=== PATIENT | female | born 1985 | race Caucasian/White ===

== ENCOUNTER 2018-03-14 15:32 | Emergency (ER) | payer OTHER ==
--- NOTE | 2018-03-14 15:55 | ERPHSYRPT ---
- History of Present Illness Time Seen by Provider: 03/14/18 15:50 Source: patient Exam Limitations: no limitations Patient Subjective Stated Complaint: pt states "I did something to my hand at work the other day. My left thumb locked up and I can move it now but it really hurts." Triage Nursing Assessment: Pt alert and oriented X 3, skin pwd. PT ambulates with no difficulty, able to sepak in clear full sentences. CSM X 4, no bruising noted. Physician History: The patient is a 32-year-old right-handed female with her complaining that her left thumb "locked up on her" on while at work. It was able to start moving again. However, now she still has pain in her left thumb going into her hand and wrist. She has used ice a little bit but not much. She has taken Tylenol. She has not taken ibuprofen because she did not have any at home. Her right thumb will lock up on her from time to time as well. She was using a thumb brace but it didn't seem to be in the right position. Her past medical history is significant for depression and anxiety. She does not want any narcotics. Occurred: days ago (3) Method of Injury: unknown Quality: aching, burning Severity of Pain-Max: moderate Severity of Pain-Current: moderate Extremities Pain Location: thumb: left Modifying Factors: Improves With: nothing Associated Symptoms: none Allergies/Adverse Reactions: No Known Drug Allergies Allergy (Unverified 03/14/18 15:45) Home Medications: Anastrozole 1 mg PO DAILY 03/14/18 [History] Buspirone HCl 5 mg PO DAILY 03/14/18 [History] Citalopram Hydrobromide [Celexa] 10 mg PO DAILY 03/14/18 [History] Hx Tetanus, Diphtheria Vaccination/Date Given: No Hx Influenza Vaccination/Date Given: No Hx Pneumococcal Vaccination/Date Given: No Immunizations Up to Date: Yes - Review of Systems Constitutional: No Fever, No Chills Eyes: No Symptoms Ears, Nose, & Throat: No Symptoms Respiratory: No Cough, No Dyspnea Cardiac: No Chest Pain, No Edema, No Syncope Abdominal/Gastrointestinal: No Abdominal Pain, No Nausea, No Vomiting, No Diarrhea Genitourinary Symptoms: No Dysuria Musculoskeletal: Myalgias Skin: No Rash Neurological: No Dizziness, No Focal Weakness, No Sensory Changes Psychological: No Symptoms Endocrine: No Symptoms Hematologic/Lymphatic: No Symptoms Immunological/Allergic: No Symptoms All Other Systems: Reviewed and Negative - Past Medical History Pertinent Past Medical History: Yes Other Medical History: endometriosis - Past Surgical History Past Surgical History: Yes Other Surgical History: exploratory abdominal surgery. appendectomy - Social History Smoking Status: Former smoker Exposure to second hand smoke: Yes Drug Use: none Patient Lives Alone: No - Female History Hx Last Menstrual Period: on shot Hx Now: No - Nursing Vital Signs Nursing Vital Signs: Initial Vital Signs Temperature 98.5 F 03/14/18 15:38 Pulse Rate 60 03/14/18 15:38 Respiratory Rate 16 03/14/18 15:38 Blood Pressure 106/64 03/14/18 15:38 O2 Sat by Pulse Oximetry 100 03/14/18 15:38 Pain Scale Pain Intensity 5 - Physical Exam General Appearance: alert Eyes, Ears, Nose, Throat Exam: normal ENT inspection Neck Exam: non-tender, supple Cardiovascular/Respiratory Exam: chest non-tender, normal breath sounds, regular rate/rhythm, no respiratory distress Abdominal Exam: non-tender, No guarding Back Exam: normal inspection, No vertebral tenderness Shoulder Exam: normal inspection Elbow/Forearm Exam: normal inspection Wrist Exam: normal inspection Hand Exam: limited ROM, soft tissue tenderness (left thumb) Neuro/Tendon Exam: normal sensation, normal motor functions Mental Status Exam: alert, oriented x 3, cooperative Skin Exam: normal color, warm, dry SpO2 Interpretation: normal SpO2: 100 Oxygen Delivery: Room Air - Radiology Exams Left Hand X-ray Interpretation: Interpreted by me, Negative, No Fracture, No Subluxation Ordered Tests: Active Orders 24 hr Category Date Time Status HAND (MINIMUM 3 VIEWS) Stat Exams 03/14/18 15:58 Ordered Medication Summary Discontinued Medications Generic Name Dose Route Start Last Admin Trade Name Freq PRN Reason Stop Dose Admin Ketorolac Tromethamine 60 mg 03/14/18 15:58 03/14/18 16:05 Toradol 30 Mg Injection IM 03/14/18 15:59 60 mg STAT ONE Administration Ketorolac Tromethamine Confirm 03/14/18 16:02 Toradol 30 Mg Injection Administered 03/14/18 16:03 Dose 60 mg .ROUTE .STK-MED ONE - Progress Progress: improved Counseled pt/family regarding: diagnosis, rad results - Departure Time of Disposition: 16:18 Departure Disposition: Home Clinical Impression: Strain of left thumb Condition: Stable Critical Care Time: No Referrals: MECHELLE POWERS MD [Primary Care Provider] - Additional Instructions: You have a left thumb strain. You were given Toradol 60 mg by IM in the ER. Wear the splint as needed for comfort. Take naproxen 500 mg 2 times a day as needed. Apply ice to the thumb at least 3 times a day. Follow-up with your primary medical doctor as needed. Prescriptions: Naproxen 500 mg PO BID PRN #30 tablet.
[2018-03-14] MEDS ORDERED: TORAdol 30 mg Injection IM ONE (15:58)
[2018-03-14] MEDS ORDERED: TORAdol 30 mg Injection ONE (16:02)
[2018-03-14 17:17] VITALS: BP 111/62; PULSE 64; O2SAT 98
--- NOTE | 2018-03-14 22:08 | XRAY ---
Indication: Pain. No known injury. Comparison: None 3 views of the left hand demonstrates normal bones, articulation, and soft tissues.
== END 2018-03-14 17:18 | disposition home or self-care (01) ==
LOC: ED 15:32
DX: S66.412A Strain of intrinsic muscle, fascia and tendon of left thumb at wrist and hand level, initial encounter (principal)
CPT/HCPCS: 73130; 96372; 99284; J1885

== ENCOUNTER 2020-04-07 17:56 | Emergency (ER) | payer OTHER ==
[2020-04-07] MEDS ORDERED: ZOFRAN ODT 4 MG PO ONE (18:12)
[2020-04-07] MEDS ORDERED: Zofran 4 MG/2 ML VIAL IV ONE ×2 (18:17→18:18)
[2020-04-07] MEDS ORDERED: Sodium Chloride 0.9% 1000 ML 1,000 ML IV STA ×2 (18:18→18:46)
[2020-04-07] MEDS ORDERED: Sodium Chloride 0.9% 1000 ML 1,000 ML ONE ×2 (18:23→19:08)
[2020-04-07] MEDS ORDERED: Zofran 4 MG/2 ML VIAL ONE (18:23)
--- NOTE | 2020-04-07 18:26 | ERPHSYRPT ---
- History of Present Illness Time Seen by Provider: 04/07/20 18:15 Historian: patient Exam Limitations: no limitations Patient Subjective Stated Complaint: Pt states "I was at work and started to vomit about 3 am." Triage Nursing Assessment: Pt presented alert and oriented X 3, skin pwd Pt ambulates with an upright steady gait, able to speak in clear full sentences. Pt in no apparent respiratory distress. Physician History: This is a 34-year-old white female who has had a total hysterectomy in the past and presents with several episodes of vomiting since 3:00 this morning. 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 She began the vomiting episodes since 3:00am. Patient denies myalgias and arthralgias, she denies chest pain. She does not have shortness of breath. She has had no fever. She does not have diarrhea. Timing/Duration: today Activities at Onset: none Quality: fullness, other (Symptoms of generalized abdominal fullness are present) Abdominal Pain Onset Location: generalized abdomen Pain Radiation: no radiation Severity of Pain-Max: mild Severity of Pain-Current: mild Modifying Factors: Improves With: vomiting Associated Symptoms: nausea, vomiting, weakness, No chest pain, No diarrhea, No fever/chills, No headache, No shortness of breath Previous symptoms: no prior history Allergies/Adverse Reactions: No Known Drug Allergies Allergy (Verified 04/07/20 18:09) Home Medications: estradioL [Estradiol] 1 mg PO DAILY 04/07/20 [History] Hx Tetanus, Diphtheria Vaccination/Date Given: No Hx Influenza Vaccination/Date Given: No Hx Pneumococcal Vaccination/Date Given: No Immunizations Up to Date: Yes Travel Risk - International Travel Have you traveled outside of the country in past 3 weeks: No - Coronavirus Screening Are you exhibiting any of the following symptoms?: No Close contact with a COVID-19 positive Pt in past 14-21 Days: No - Review of Systems Constitutional: Weakness Eyes: No Symptoms Ears, Nose, & Throat: No Symptoms Respiratory: No Symptoms Cardiac: No Symptoms Abdominal/Gastrointestinal: Nausea, Vomiting, No Abdominal Pain (No significant), No Diarrhea Genitourinary Symptoms: No Symptoms Musculoskeletal: No Symptoms Skin: No Symptoms Neurological: No Symptoms Psychological: No Symptoms Endocrine: No Symptoms Hematologic/Lymphatic: No Symptoms Immunological/Allergic: No Symptoms All Other Systems: Reviewed and Negative - Past Medical History Pertinent Past Medical History: Yes Neurological History: No Pertinent History ENT History: No Pertinent History Cardiac History: No Pertinent History Respiratory History: No Pertinent History Endocrine Medical History: No Pertinent History Musculoskeletal History: No Pertinent History GI Medical History: No Pertinent History History: No Pertinent History Psycho-Social History: No Pertinent History Female Reproductive Disorders: No Pertinent History Other Medical History: endometriosis - Past Surgical History Past Surgical History: Yes Neuro Surgical History: No Pertinent History Cardiac: No Pertinent History Respiratory: No Pertinent History Gastrointestinal: Appendectomy, Exploratory Laparoscopy Genitourinary: No Pertinent History Musculoskeletal: No Pertinent History Female Surgical History: Hysterectomy Other Surgical History: exploratory abdominal surgery. appendectomy. hysterectomy - Social History Smoking Status: Former smoker Exposure to second hand smoke: Yes Drug Use: marijuana Patient Lives Alone: No - Female History Hx Last Menstrual Period: hysterectomy Hx Now: No - Nursing Vital Signs Nursing Vital Signs: Initial Vital Signs Temperature 97.5 F 04/07/20 18:04 Pulse Rate 80 04/07/20 18:04 Respiratory Rate 22 04/07/20 18:04 Blood Pressure 108/70 04/07/20 18:04 O2 Sat by Pulse Oximetry 99 04/07/20 18:04 Pain Scale Pain Intensity 0 - Physical Exam General Appearance: mild distress, alert, anxiety Eye Exam: PERRL/EOMI Ears, Nose, Throat Exam: normal ENT inspection, moist mucous membranes Neck Exam: normal inspection, non-tender, supple, full range of motion Respiratory Exam: normal breath sounds, lungs clear, airway intact, No chest tenderness, No respiratory distress Cardiovascular Exam: regular rate/rhythm, normal heart sounds, normal peripheral pulses Gastrointestinal/Abdomen Exam: soft, normal bowel sounds, No tenderness, No guarding, No rebound Pelvic Exam: not done Rectal Exam: not done Back Exam: normal inspection, normal range of motion, No CVA tenderness, No vertebral tenderness Extremity Exam: normal inspection, normal range of motion, pelvis stable Neurologic Exam: alert, oriented x 3, cooperative, 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, normal mood/affect, sensation nml Skin Exam: normal color, warm, dry Lymphatic Exam: No adenopathy SpO2 Interpretation: normal SpO2: 99 O2 Delivery: Room Air Ordered Tests: Active Orders 24 hr Category Date Time Status IV Insertion STAT Care 04/07/20 18:18 Active AMYLASE Stat Lab 04/07/20 18:25 Completed CBC W DIFF Stat Lab 04/07/20 18:25 Completed CMP Stat Lab 04/07/20 18:25 Completed LIPASE Stat Lab 04/07/20 18:25 Completed Lactic Acid Stat Lab 04/07/20 18:55 Completed UA W/RFX UR CULTURE Stat Lab 04/07/20 18:25 Completed Medication Summary Discontinued Medications Generic Name Dose Route Start Last Admin Trade Name Bobbyq PRN Reason Stop Dose Admin Sodium Chloride 1,000 mls @ 999 mls/hr 04/07/20 18:18 04/07/20 19:16 Sodium Chloride 0.9% 1000 Ml IV 04/07/20 19:18 Infused .Q1H1M STA Infusion Sodium Chloride Confirm 04/07/20 18:23 Sodium Chloride 0.9% 1000 Ml Administered 04/07/20 18:24 Dose 1,000 mls @ ud .ROUTE .STK-MED ONE Sodium Chloride 1,000 mls @ 999 mls/hr 04/07/20 18:46 04/07/20 19:11 Sodium Chloride 0.9% 1000 Ml IV 04/07/20 19:46 999 mls/hr .Q1H1M STA Administration Sodium Chloride Confirm 04/07/20 19:08 Sodium Chloride 0.9% 1000 Ml Administered 04/07/20 19:09 Dose 1,000 mls @ ud .ROUTE .STK-MED ONE Ondansetron HCl 4 mg 04/07/20 18:12 04/07/20 18:18 Zofran Odt 4 Mg PO 04/07/20 18:13 Not Given STAT ONE Ondansetron HCl 4 mg 04/07/20 18:17 04/07/20 18:24 Zofran 4 Mg/2 Ml Vial IV 04/07/20 18:18 4 mg STAT ONE Administration Ondansetron HCl 4 mg 04/07/20 18:18 04/07/20 18:23 Zofran 4 Mg/2 Ml Vial IV 04/07/20 18:19 Not Given STAT ONE Ondansetron HCl Confirm 04/07/20 18:23 Zofran 4 Mg/2 Ml Vial Administered 04/07/20 18:24 Dose 4 mg .ROUTE .STK-MED ONE Lab/Rad Data: Laboratory Result Diagrams 04/07/20 18:25 04/07/20 18:25 Laboratory Results 04/07/20 04/07/20 04/07/20 Range/Units Unknown 18:55 18:25 WBC (4.0-10.5) K/mm3 RBC (4.1-5.4) M/mm3 Hgb (12.0-16.0) gm/dl Hct (35-47) % MCV (78-100) fl MCH (26-32) pg MCHC (32-36) g/dl RDW (11.5-14.0) % Plt Count (150-450) K/mm3 MPV (7.5-11.0) fl Gran % (36.0-66.0) % Eos # (Auto) (0-0.5) Absolute Lymphs (auto) (1.0-4.6) Absolute Monos (auto) (0.0-1.3) Lymphocytes % (24.0-44.0) % Monocytes % (0.0-12.0) % Eosinophils % (0.00-5.0) % Basophils % (0.0-0.4) % Absolute Granulocytes (1.4-6.9) Basophils # (0-0.4) Sodium 138 (137-145) mmol/L Potassium 3.5 (3.5-5.1) mmol/L Chloride 102 (98-107) mmol/L Carbon Dioxide 26 (22-30) mmol/L Anion Gap 13.5 (5-15) MEQ/L BUN 13 (7-17) mg/dL Creatinine 0.60 (0.52-1.04) mg/dL Estimated GFR > 60.0 ML/MIN Glucose 112 H (74-106) mg/dL Lactic Acid 1.2 (0.4-2.0) Calcium 9.6 (8.4-10.2) mg/dL Total Bilirubin 0.70 (0.2-1.3) mg/dL AST 26 (14-36) U/L ALT 17 (0-35) U/L Alkaline Phosphatase 70 (38-126) U/L Serum Total Protein 8.1 (6.3-8.2) g/dL Albumin 4.9 (3.5-5.0) g/dL Amylase 186 H (30-110) U/L Lipase 97 (23-300) U/L Urine Color (YELLOW) Urine Appearance (CLEAR) Urine pH (5-6) Ur Specific [place] (1.005-1.025) Urine Protein (Negative) Urine Ketones (NEGATIVE) Urine Blood (0-5) [place]/ul Urine Nitrite (NEGATIVE) Urine Bilirubin (NEGATIVE) Urine Urobilinogen (0-1) mg/dL Ur Leukocyte Esterase (NEGATIVE) Urine WBC (Auto) (0-5) /HPF Urine RBC (Auto) (0-2) /HPF U Epithel Cells (Auto) (FEW) /HPF Urine Bacteria (Auto) (NEGATIVE) /HPF Amorphous Crystals (NEGATIVE) /HPF Urine Mucus (Auto) (NEGATIVE) /HPF Urine Culture Reflexed (NO) Urine Glucose (NEGATIVE) mg/dL Influenza Type A Ag NEGATIVE (NEGATIVE) Influenza Type B Ag NEGATIVE (NEGATIVE) RSV (PCR) NEGATIVE (Negative) 04/07/20 04/07/20 Range/Units 18:25 18:25 WBC 14.3 H (4.0-10.5) K/mm3 RBC 4.02 L (4.1-5.4) M/mm3 Hgb 13.5 (12.0-16.0) gm/dl Hct 40.0 (35-47) % MCV 99.5 (78-100) fl MCH 33.6 H (26-32) pg MCHC 33.8 (32-36) g/dl RDW 11.4 L (11.5-14.0) % Plt Count 325 (150-450) K/mm3 MPV 10.6 (7.5-11.0) fl Gran % 83.6 H (36.0-66.0) % Eos # (Auto) 0.01 (0-0.5) Absolute Lymphs (auto) 1.85 (1.0-4.6) Absolute Monos (auto) 0.45 (0.0-1.3) Lymphocytes % 13.0 L (24.0-44.0) % Monocytes % 3.2 (0.0-12.0) % Eosinophils % 0.1 (0.00-5.0) % Basophils % 0.1 (0.0-0.4) % Absolute Granulocytes 11.93 H (1.4-6.9) Basophils # 0.01 (0-0.4) Sodium (137-145) mmol/L Potassium (3.5-5.1) mmol/L Chloride (98-107) mmol/L Carbon Dioxide (22-30) mmol/L Anion Gap (5-15) MEQ/L BUN (7-17) mg/dL Creatinine (0.52-1.04) mg/dL Estimated GFR ML/MIN Glucose (74-106) mg/dL Lactic Acid (0.4-2.0) Calcium (8.4-10.2) mg/dL Total Bilirubin (0.2-1.3) mg/dL AST (14-36) U/L ALT (0-35) U/L Alkaline Phosphatase (38-126) U/L Serum Total Protein (6.3-8.2) g/dL Albumin (3.5-5.0) g/dL Amylase (30-110) U/L Lipase (23-300) U/L Urine Color YELLOW (YELLOW) Urine Appearance TURBID (CLEAR) Urine pH 6.0 (5-6) Ur Specific [place] 1.019 (1.005-1.025) Urine Protein 30 (Negative) Urine Ketones TRACE (NEGATIVE) Urine Blood NEGATIVE (0-5) [place]/ul Urine Nitrite NEGATIVE (NEGATIVE) Urine Bilirubin NEGATIVE (NEGATIVE) Urine Urobilinogen NEGATIVE (0-1) mg/dL Ur Leukocyte Esterase NEGATIVE (NEGATIVE) Urine WBC (Auto) 3-5 (0-5) /HPF Urine RBC (Auto) 0-2 (0-2) /HPF U Epithel Cells (Auto) FEW (FEW) /HPF Urine Bacteria (Auto) NONE (NEGATIVE) /HPF Amorphous Crystals FEW (NEGATIVE) /HPF Urine Mucus (Auto) SLIGHT (NEGATIVE) /HPF Urine Culture Reflexed NO (NO) Urine Glucose NEGATIVE (NEGATIVE) mg/dL Influenza Type A Ag (NEGATIVE) Influenza Type B Ag (NEGATIVE) RSV (PCR) (Negative) - Progress Progress: improved, re-examined Counseled pt/family regarding: lab results, diagnosis, need for follow-up - Departure Departure Disposition: Home Clinical Impression: Nausea and vomiting Condition: Stable Critical Care Time: No Referrals: DOCTOR,NO FAMILY [Primary Care Provider] - Additional Instructions: Drink plenty of clear liquids before advancing your diet. Avoid fatty greasy spicy foods. Follow-up with your primary care physician for further management of any persistent symptoms. Prescriptions: Ondansetron ODT 4 MG [Zofran Odt 4 mg] 4 mg PO Q6H PRN PRN #10 tab.rapdis PRN Reason: Vomiting
[2020-04-07 18:33] LABS: Absolute Neutrophil Ct (ANC) 11.93 (1.4-6.9); BASOPHIL % 0.1 % (0.0-0.4); Basophil (Absolute #) 0.01 (0-0.4); Eosinophil % 0.1 % (0.00-5.0); Eosinophil (Absolute #) 0.01 (0-0.5); Hemoglobin 13.5 gm/dl (12.0-16.0); Lymphocyte (Absolute #) 1.85 (1.0-4.6); Mean Cell Volume 99.5 fl (78-100); Mean Corpuscular Hemoglobin 33.6 pg (26-32); Mean Corpuscular Hgb Concent. 33.8 g/dl (32-36); Mean Platelet Volume 10.6 fl (7.5-11.0); Monocyte (Absolute #) 0.45 (0.0-1.3); Monocytes % 3.2 % (0.0-12.0); Neutrophil % 83.6 % (36.0-66.0); Platelet Count 325 K/mm3 (150-450); Red Blood Count 4.02 M/mm3 (4.1-5.4); Red Cell Distribution Width 11.4 % (11.5-14.0); White Blood Count 14.3 K/mm3 (4.0-10.5)
[2020-04-07 18:40] LABS: Amourphous Crystal FEW /HPF (NEGATIVE); Appearance TURBID (CLEAR); Bilirubin NEGATIVE (NEGATIVE); Blood NEGATIVE Ery/ul (0-5); Epithelial Cells FEW /HPF (FEW); Glucose NEGATIVE (NEGATIVE); Ketones TRACE (NEGATIVE); Leukocyte Esterase NEGATIVE (NEGATIVE); Mucus SLIGHT /HPF (NEGATIVE); Nitrite NEGATIVE (NEGATIVE); Protein,Urine Dip 30 (Negative); RBC 0-2 /HPF (0-2); Specific Gravity 1.019 (1.005-1.025); Urobilinogen NEGATIVE mg/dL (0-1)
[2020-04-07 18:46] LABS: ALBUMIN 4.9 g/dL (3.5-5.0); ALKALINE PHOSPHATASE 70 U/L (38-126); AMYLASE 186 U/L (30-110); ANION GAP 13.5 MEQ/L (5-15); BLOOD UREA NITROGEN 13 mg/dL (7-17); CHLORIDE 102 mmol/L (98-107); Calcium 9.6 mg/dL (8.4-10.2); Carbon Dioxide 26 mmol/L (22-30); Glucose 112 mg/dL (74-106); LIPASE 97 U/L (23-300); Potassium 3.5 mmol/L (3.5-5.1); SGOT/AST 26 U/L (14-36); SGPT/ALT 17 U/L (0-35); SODIUM 138 mmol/L (137-145); Total Protein 8.1 g/dL (6.3-8.2)
[2020-04-07 20:02] LABS: INFLUENZA A NEGATIVE (NEGATIVE); INFLUENZA B NEGATIVE (NEGATIVE); RESPIRATORY SYNCTIAL VIRUS NEGATIVE (Negative)
[2020-04-07 20:54] VITALS: BP 108/63; PULSE 62; O2SAT 98
== END 2020-04-07 20:54 | disposition home or self-care (01) ==
LOC: ED 17:56
DX: R11.2 Nausea with vomiting, unspecified (principal)
CPT/HCPCS: 36000; 36415; 80053; 81001; 82150; 83605; 83690; 85025; 87631; 96360; 96361; 96374; 99284; J2405

== ENCOUNTER 2020-07-17 15:49 | Observation (INO) | payer OTHER ==
--- NOTE | 2020-07-17 16:35 | XRAY ---
Indication: Loss of consciousness. Found on floor. Multiple contiguous axial images obtained through the head without contrast. Comparison: None Normal appearing brain parenchyma, ventricles, and bony calvarium. Visualized paranasal sinuses and mastoid air cells are clear. Impression: Normal CT head without contrast exam.
[2020-07-17 16:54] LABS: Absolute Neutrophil Ct (ANC) 13.65 (1.4-6.9); Basophil (Absolute #) 0 (0-0.4); Eosinophil % 0.1 % (0.00-5.0); Eosinophil (Absolute #) 0.01 (0-0.5); Hematocrit 39.2 % (35-47); Hemoglobin 13.1 gm/dl (12.0-16.0); Lymphocyte (Absolute #) 1.15 (1.0-4.6); Lymphocytes % 7.6 % (24.0-44.0); Mean Corpuscular Hemoglobin 33.8 pg (26-32); Mean Corpuscular Hgb Concent. 33.4 g/dl (32-36); Mean Platelet Volume 10.9 fl (7.5-11.0); Monocyte (Absolute #) 0.37 (0.0-1.3); Monocytes % 2.4 % (0.0-12.0); Neutrophil % 89.9 % (36.0-66.0); Platelet Count 279 K/mm3 (150-450); Red Blood Count 3.88 M/mm3 (4.1-5.4); Red Cell Distribution Width 11.6 % (11.5-14.0); White Blood Count 15.2 K/mm3 (4.0-10.5)
[2020-07-17 16:55] LABS: Amourphous Crystal FEW /HPF (NEGATIVE); Appearance CLOUDY (CLEAR); Bilirubin NEGATIVE (NEGATIVE); Blood SMALL Ery/ul (0-5); Glucose NEGATIVE (NEGATIVE); Ketones TRACE (NEGATIVE); Leukocyte Esterase NEGATIVE (NEGATIVE); Mucus SLIGHT /HPF (NEGATIVE); Nitrite NEGATIVE (NEGATIVE); Protein,Urine Dip 30 (Negative); Specific Gravity 1.017 (1.005-1.025); Urobilinogen NEGATIVE mg/dL (0-1)
[2020-07-17 16:56] LABS: Bacteria NONE SEEN /HPF (NEGATIVE)
[2020-07-17 17:02] LABS: ALBUMIN 4.2 g/dL (3.5-5.0); ALKALINE PHOSPHATASE 65 U/L (38-126); BLOOD UREA NITROGEN 11 mg/dL (7-17); CHLORIDE 105 mmol/L (98-107); Carbon Dioxide 24 mmol/L (22-30); Creatinine 1 0.45 mg/dL (0.52-1.04); EST GLOMERULAR FILTRATION RATE > 60.0 ML/MIN; Glucose 128 mg/dL (74-106); Potassium 4.4 mmol/L (3.5-5.1); SGOT/AST 30 U/L (14-36); SGPT/ALT 24 U/L (0-35); SODIUM 137 mmol/L (137-145); Total Protein 7.3 g/dL (6.3-8.2)
[2020-07-17 17:13] LABS: Amphetamine,Urine NEGATIVE (NEGATIVE); Barbiturate,Urine NEGATIVE (NEGATIVE); Benzodiazepine,Urine NEGATIVE (NEGATIVE); Cocaine,Urine NEGATIVE (NEGATIVE); Methadone,Urine NEGATIVE (NEGATIVE); Opiate,Urine NEGATIVE (NEGATIVE); PCP,Urine NEGATIVE (NEGATIVE); THC,Urine POSITIVE (NEGATIVE)
[2020-07-17] MEDS ORDERED: Sodium Chloride 0.9% 1000 ML 1,000 ML IV STA (18:15)
[2020-07-17] MEDS ORDERED: TORAdol 30 mg Injection IV ONE (18:15)
[2020-07-17] MEDS ORDERED: Sodium Chloride 0.9% 1000 ML 1,000 ML ONE (18:18)
[2020-07-17] MEDS ORDERED: TORAdol 30 mg Injection ONE (18:18)
--- NOTE | 2020-07-17 18:45 | ERPHSYRPT ---
- History of Present Illness Source: patient, EMS Exam Limitations: other (Lethargy) Patient Subjective Stated Complaint: pt here for altered loc, her daughter called ambulance because she was found on floor not acting her norm, she told police she was normal 3 hours ago, Triage Nursing Assessment: pt opens eyes when call her name, when asked what happened she states i dont know i just dont feel good, ,my belly hurts, resp easy, skin w/d/p,moves all ext well, no edema, Physician History: 35 yo wf w altered LOC per EMS. EMS found pt on the floor of her house minimally responsive but w good airway. Pt brought to ER lethargic but w good airway. She was rushed to CT where head appeared neg per ER physician read, and subsequently, by Rad. Pt lethargic, but oriented x3 when she returned to ER. She stated that she woke up with a MAHONEY and really has no h/o MAHONEY. MAHONEY was global and 5/10. She has nausea but denies fever/focal weakness/trauma/chest pain/dyspnea/alcohol-drug use. Timing/Duration: today Severity: moderate Character of Deficits: new weakness, general (difuse) (Lethargy) Baseline/Normal Cognition: alert oriented x 3 Current Cognition: poor alertness (Lethargic but oriented x3) Baseline Gait: walks w/o assistance Associated Symptoms: confusion, loss of consciousness, nausea, weakness, No fatigue, No fever, No chills, No vomiting, No insomnia, No muscle spasms, No numbness/tingling in legs/feet, No paresthesia, No ringing in ears, No seizures, No slurred speech, No trouble walking, No vision changes Allergies/Adverse Reactions: No Known Drug Allergies Allergy (Verified 07/17/20 15:58) Home Medications: estradioL [Estradiol] 1 mg PO DAILY 04/07/20 [History] Hx Tetanus, Diphtheria Vaccination/Date Given: No Hx Influenza Vaccination/Date Given: No Hx Pneumococcal Vaccination/Date Given: No Immunizations Up to Date: Yes Travel Risk - International Travel Have you traveled outside of the country in past 3 weeks: No - Coronavirus Screening Are you exhibiting any of the following symptoms?: No Close contact with a COVID-19 positive Pt in past 14-21 Days: No - Review of Systems Constitutional: Lethargy Eyes: No Symptoms Ears, Nose, & Throat: No Symptoms Respiratory: No Symptoms Cardiac: No Symptoms Abdominal/Gastrointestinal: No Symptoms, Nausea Genitourinary Symptoms: No Symptoms Musculoskeletal: No Symptoms Skin: No Symptoms Neurological: No Symptoms, Headache, Lethargy Psychological: No Symptoms Endocrine: No Symptoms Hematologic/Lymphatic: No Symptoms Immunological/Allergic: No Symptoms - Past Medical History Pertinent Past Medical History: Yes Neurological History: No Pertinent History ENT History: No Pertinent History Cardiac History: No Pertinent History Respiratory History: No Pertinent History Endocrine Medical History: No Pertinent History Musculoskeletal History: No Pertinent History GI Medical History: No Pertinent History History: No Pertinent History Psycho-Social History: No Pertinent History Female Reproductive Disorders: No Pertinent History Other Medical History: endometriosis - Past Surgical History Past Surgical History: Yes Neuro Surgical History: No Pertinent History Cardiac: No Pertinent History Respiratory: No Pertinent History Gastrointestinal: Appendectomy, Exploratory Laparoscopy Genitourinary: No Pertinent History Musculoskeletal: No Pertinent History Female Surgical History: Hysterectomy Other Surgical History: exploratory abdominal surgery. appendectomy. hysterectomy - Social History Smoking Status: Former smoker Exposure to second hand smoke: Yes Drug Use: marijuana Patient Lives Alone: No Significant Family History: no pertinent family hx - Female History Hx Last Menstrual Period: unsure Hx Now: No - Nursing Vital Signs Nursing Vital Signs: Initial Vital Signs Pulse Rate 60 07/17/20 16:54 Respiratory Rate 16 07/17/20 16:54 Blood Pressure 104/62 07/17/20 16:54 O2 Sat by Pulse Oximetry 100 07/17/20 16:54 Pain Scale Pain Intensity 0 - Lily Coma Scale Best Eye Response (Lily): (4) open spontaneously Best Verbal Response (Lily): (5) oriented Best Motor Response (Lily): (6) obeys commands Lily Total: 15 - Physical Exam General Appearance: lethargy Eye Exam: bilateral eye: normal inspection, PERRL, EOMI Ears, Nose, Throat Exam: normal ENT inspection, TMs normal, pharynx normal Neck Exam: normal inspection, non-tender, supple, No meningismus, No mass, No Brudzinski, No Kernig's Respiratory: normal breath sounds, lungs clear, airway intact, No respiratory distress Cardiovascular: regular rate/rhythm, normal heart sounds, No murmur, No edema Gastrointestinal: soft, normal bowel sounds, No tenderness Back Exam: normal inspection, normal range of motion, CVA tenderness, No allison tebral tenderness Extremity Exam: normal inspection, normal range of motion, No pedal edema Peripheral Pulses: carotid (R): 2+, carotid (L): 2+ 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, 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, 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 Exam: normal hearing, normal speech, PERRL, abnormal eye position, No abnormal gag reflex, No abnormal pupil position, No abnormal speech, No facial asymmetry Motor/Sensory: no motor deficit, no sensory deficit, no pronator drift, negative Babinski's sign DTR: bicep (R): 2+, bicep (L): 2+ Skin Exam: normal color, warm, dry SpO2 Interpretation: normal SpO2: 98 O2 Delivery: Room Air Procedures - Lumbar Puncture Timeout: Performed Indication: headache (Lethargy/Leukocytosis) Lumbar Puncture: consent obtained, sitting, lying, betadine prep, 1% lidocaine local anesth, 3-4 lumbar space, 4-5 lumbar space, complications (Unable to obtain) - Course Nursing assessment & vital signs reviewed: Yes - CT Exams Head CT Interpretation: Discussed w/radiologist (NAD) Other CT Interpretation: Discussed w/radiologist, Tele-radiologist Report (of head/neck neg) Ordered Tests: Active Orders 24 hr Category Date Time Status Bedrest with BRP/BSC ROUTINE Activity 07/17/20 22:00 Active Code Status Order ROUTINE Care 07/17/20 21:59 Active Fall Protocol ROUTINE Care 07/17/20 22:00 Active IV Care Q6H Care 07/17/20 21:59 Active Neuro Checks Q4H Care 07/17/20 21:58 Active Neuro Checks STAT Care 07/17/20 22:[address] in Observation ROUTINE Care 07/17/20 21:59 Active House Regular Diet Diet 07/17/[address] ANGIOGRAPHY NECK [CT] Routine Exams 07/17/20 19:48 Taken CTA HEAD W AND/OR WO CONTRAST [CT] Stat Exams 07/17/20 18:16 Taken HEAD WITHOUT CONTRAST [CT] Stat Exams 07/17/20 16:03 Completed BLOOD CULTURE Stat Lab 07/17/20 19:35 Received CBC W DIFF AM.LAB Lab 07/18/20 04:00 Ordered CBC W DIFF Stat Lab 07/17/20 16:30 Completed CMP AM.LAB Lab 07/18/20 04:00 Ordered CMP Stat Lab 07/17/20 16:30 Completed CULTURE,URINE Stat Lab 07/17/20 16:19 Received HCG,QUALITATIVE URINE Stat Lab 07/17/20 16:19 Completed Lactic Acid Stat Lab 07/17/20 18:55 Completed UA W/RFX UR CULTURE Stat Lab 07/17/20 16:19 Completed Urine Triage Profile Stat Lab 07/17/20 16:19 Completed Transfer Order Routine Transfer 07/17/20 Ordered Medication Summary Generic Name Dose Route Start Last Admin Trade Name Mike PRN Reason Stop Dose Admin Acyclovir Sodium 500 mg/ 100 mls @ 100 mls/hr 07/17/20 20:15 07/17/20 21:03 Sodium Chloride IV 08/16/20 20:14 100 mls/hr Q8H SHAWNA Administration Sodium Chloride 1,000 mls @ 100 mls/hr 07/17/20 22:00 Sodium Chloride 0.9% 1000 Ml IV 08/16/20 21:59 .Q10H SHAWNA Ceftriaxone Sodium/Dextrose 1 g in 50 mls @ 100 mls/hr 07/18/20 10:00 Rocephin 1 Gm-D5w 50 Ml Bag IV 08/17/20 09:59 Q24H10 SHAWNA Acyclovir Sodium 500 mg/ 100 mls @ 100 mls/hr 07/17/20 22:15 Sodium Chloride IV 08/16/20 22:14 Q8H SHAWNA Ketorolac Tromethamine 30 mg 07/17/20 21:58 Toradol 30 Mg Injection IV 07/22/20 21:57 Q6H PRN PRN PAIN Ondansetron HCl 4 mg 07/17/20 21:58 Zofran 4 Mg/2 Ml Vial IV 08/16/20 21:57 Q6H PRN PRN NAUSEA/VOMITING Pantoprazole Sodium 40 mg 07/18/20 10:00 Protonix 40 Mg Iv IV 08/17/20 09:59 Q24H10 SHAWNA Discontinued Medications Generic Name Dose Route Start Last Admin Trade Name Mike PRN Reason Stop Dose Admin Sodium Chloride 1,000 mls @ 999 mls/hr 07/17/20 18:15 07/17/20 19:28 Sodium Chloride 0.9% 1000 Ml IV 07/17/20 19:15 Infused .Q1H1M STA Infusion Sodium Chloride Confirm 07/17/20 18:18 Sodium Chloride 0.9% 1000 Ml Administered 07/17/20 18:19 Dose 1,000 mls @ ud .ROUTE .STK-MED ONE Ceftriaxone Sodium/Dextrose 2 g in 50 mls @ 100 mls/hr 07/17/20 19:16 07/17/20 20:16 Rocephin 2 Gm-D5w 50ml Bag IV 07/17/20 19:45 Infused STAT STA Infusion Ceftriaxone Sodium/Dextrose Confirm 07/17/20 19:29 Rocephin 2 Gm-D5w 50ml Bag Administered 07/17/20 19:30 Dose 2 g in 50 mls @ ud IV .STK-MED ONE Sodium Chloride Confirm 07/17/20 20:58 Sodium Chloride 0.9% 100 Ml Ivpb Administered 07/17/20 20:59 Dose 100 mls @ ud IV .STK-MED ONE Ketorolac Tromethamine 30 mg 07/17/20 18:15 07/17/20 18:20 Toradol 30 Mg Injection IV 07/17/20 18:16 30 mg STAT ONE Administration Ketorolac Tromethamine Confirm 07/17/20 18:18 Toradol 30 Mg Injection Administered 07/17/20 18:19 Dose 30 mg .ROUTE .STK-MED ONE Lab/Rad Data: Laboratory Result Diagrams 07/17/20 16:30 07/17/20 16:30 Laboratory Results 07/17/20 07/17/20 07/17/20 Range/Units 20:44 18:55 16:30 WBC (4.0-10.5) K/mm3 RBC (4.1-5.4) M/mm3 Hgb (12.0-16.0) gm/dl Hct (35-47) % MCV (78-100) fl MCH (26-32) pg MCHC (32-36) g/dl RDW (11.5-14.0) % Plt Count (150-450) K/mm3 MPV (7.5-11.0) fl Gran % (36.0-66.0) % Eos # (Auto) (0-0.5) Absolute Lymphs (auto) (1.0-4.6) Absolute Monos (auto) (0.0-1.3) Lymphocytes % (24.0-44.0) % Monocytes % (0.0-12.0) % Eosinophils % (0.00-5.0) % Basophils % (0.0-0.4) % Absolute Granulocytes (1.4-6.9) Basophils # (0-0.4) Sodium 137 (137-145) mmol/L Potassium 4.4 (3.5-5.1) mmol/L Chloride 105 (98-107) mmol/L Carbon Dioxide 24 (22-30) mmol/L Anion Gap 12.0 (5-15) MEQ/L BUN 11 (7-17) mg/dL Creatinine 0.45 L (0.52-1.04) mg/dL Estimated GFR > 60.0 ML/MIN Glucose 128 H (74-106) mg/dL Lactic Acid 1.3 (0.4-2.0) Calcium 9.0 (8.4-10.2) mg/dL Total Bilirubin 0.30 (0.2-1.3) mg/dL AST 30 (14-36) U/L ALT 24 (0-35) U/L Alkaline Phosphatase 65 (38-126) U/L Serum Total Protein 7.3 (6.3-8.2) g/dL Albumin 4.2 (3.5-5.0) g/dL Urine Color (YELLOW) Urine Appearance (CLEAR) Urine pH (5-6) Ur Specific Liberty (1.005-1.025) Urine Protein (Negative) Urine Ketones (NEGATIVE) Urine Blood (0-5) Lenard/ul Urine Nitrite (NEGATIVE) Urine Bilirubin (NEGATIVE) Urine Urobilinogen (0-1) mg/dL Ur Leukocyte Esterase (NEGATIVE) Urine WBC (Auto) (0-5) /HPF Urine RBC (Auto) (0-2) /HPF U Epithel Cells (Auto) (FEW) /HPF Urine Bacteria (Auto) (NEGATIVE) /HPF Uric Acid Cryst (Auto) (NEGATIVE) /HPF Amorphous Crystals (NEGATIVE) /HPF Urine Mucus (Auto) (NEGATIVE) /HPF Urine Culture Reflexed (NO) Urine Glucose (NEGATIVE) mg/dL Urine HCG, Qual (Negative) Urine Opiates Level (NEGATIVE) Ur Methadone (NEGATIVE) Urine Barbiturates (NEGATIVE) Ur Phencyclidine (PCP) (NEGATIVE) Urine Amphetamine (NEGATIVE) U Benzodiazepine Level (NEGATIVE) Urine Cocaine (NEGATIVE) Urine Marijuana (THC) (NEGATIVE) SARS-CoV-2 (PCR) NEGATIVE (NEGATIVE) 07/17/20 07/17/20 07/17/20 Range/Units 16:30 16:19 16:19 WBC 15.2 H (4.0-10.5) K/mm3 RBC 3.88 L (4.1-5.4) M/mm3 Hgb 13.1 (12.0-16.0) gm/dl Hct 39.2 (35-47) % MCV 101.0 H (78-100) fl MCH 33.8 H (26-32) pg MCHC 33.4 (32-36) g/dl RDW 11.6 (11.5-14.0) % Plt Count 279 (150-450) K/mm3 MPV 10.9 (7.5-11.0) fl Gran % 89.9 H (36.0-66.0) % Eos # (Auto) 0.01 (0-0.5) Absolute Lymphs (auto) 1.15 (1.0-4.6) Absolute Monos (auto) 0.37 (0.0-1.3) Lymphocytes % 7.6 L (24.0-44.0) % Monocytes % 2.4 (0.0-12.0) % Eosinophils % 0.1 (0.00-5.0) % Basophils % 0.0 (0.0-0.4) % Absolute Granulocytes 13.65 H (1.4-6.9) Basophils # 0 (0-0.4) Sodium (137-145) mmol/L Potassium (3.5-5.1) mmol/L Chloride (98-107) mmol/L Carbon Dioxide (22-30) mmol/L Anion Gap (5-15) MEQ/L BUN (7-17) mg/dL Creatinine (0.52-1.04) mg/dL Estimated GFR ML/MIN Glucose (74-106) mg/dL Lactic Acid (0.4-2.0) Calcium (8.4-10.2) mg/dL Total Bilirubin (0.2-1.3) mg/dL AST (14-36) U/L ALT (0-35) U/L Alkaline Phosphatase (38-126) U/L Serum Total Protein (6.3-8.2) g/dL Albumin (3.5-5.0) g/dL Urine Color (YELLOW) Urine Appearance (CLEAR) Urine pH (5-6) Ur Specific Liberty (1.005-1.025) Urine Protein (Negative) Urine Ketones (NEGATIVE) Urine Blood (0-5) Lenard/ul Urine Nitrite (NEGATIVE) Urine Bilirubin (NEGATIVE) Urine Urobilinogen (0-1) mg/dL Ur Leukocyte Esterase (NEGATIVE) Urine WBC (Auto) (0-5) /HPF Urine RBC (Auto) (0-2) /HPF U Epithel Cells (Auto) (FEW) /HPF Urine Bacteria (Auto) (NEGATIVE) /HPF Uric Acid Cryst (Auto) (NEGATIVE) /HPF Amorphous Crystals (NEGATIVE) /HPF Urine Mucus (Auto) (NEGATIVE) /HPF Urine Culture Reflexed (NO) Urine Glucose (NEGATIVE) mg/dL Urine HCG, Qual NEGATIVE (Negative) Urine Opiates Level NEGATIVE (NEGATIVE) Ur Methadone NEGATIVE (NEGATIVE) Urine Barbiturates NEGATIVE (NEGATIVE) Ur Phencyclidine (PCP) NEGATIVE (NEGATIVE) Urine Amphetamine NEGATIVE (NEGATIVE) U Benzodiazepine Level NEGATIVE (NEGATIVE) Urine Cocaine NEGATIVE (NEGATIVE) Urine Marijuana (THC) POSITIVE (NEGATIVE) SARS-CoV-2 (PCR) (NEGATIVE) 07/17/20 Range/Units 16:19 WBC (4.0-10.5) K/mm3 RBC (4.1-5.4) M/mm3 Hgb (12.0-16.0) gm/dl Hct (35-47) % MCV (78-100) fl MCH (26-32) pg MCHC (32-36) g/dl RDW (11.5-14.0) % Plt Count (150-450) K/mm3 MPV (7.5-11.0) fl Gran % (36.0-66.0) % Eos # (Auto) (0-0.5) Absolute Lymphs (auto) (1.0-4.6) Absolute Monos (auto) (0.0-1.3) Lymphocytes % (24.0-44.0) % Monocytes % (0.0-12.0) % Eosinophils % (0.00-5.0) % Basophils % (0.0-0.4) % Absolute Granulocytes (1.4-6.9) Basophils # (0-0.4) Sodium (137-145) mmol/L Potassium (3.5-5.1) mmol/L Chloride (98-107) mmol/L Carbon Dioxide (22-30) mmol/L Anion Gap (5-15) MEQ/L BUN (7-17) mg/dL Creatinine (0.52-1.04) mg/dL Estimated GFR ML/MIN Glucose (74-106) mg/dL Lactic Acid (0.4-2.0) Calcium (8.4-10.2) mg/dL Total Bilirubin (0.2-1.3) mg/dL AST (14-36) U/L ALT (0-35) U/L Alkaline Phosphatase (38-126) U/L Serum Total Protein (6.3-8.2) g/dL Albumin (3.5-5.0) g/dL Urine Color YELLOW (YELLOW) Urine Appearance CLOUDY (CLEAR) Urine pH 5.0 (5-6) Ur Specific Liberty 1.017 (1.005-1.025) Urine Protein 30 (Negative) Urine Ketones TRACE (NEGATIVE) Urine Blood SMALL (0-5) Lenard/ul Urine Nitrite NEGATIVE (NEGATIVE) Urine Bilirubin NEGATIVE (NEGATIVE) Urine Urobilinogen NEGATIVE (0-1) mg/dL Ur Leukocyte Esterase NEGATIVE (NEGATIVE) Urine WBC (Auto) 3-5 (0-5) /HPF Urine RBC (Auto) NONE (0-2) /HPF U Epithel Cells (Auto) NONE (FEW) /HPF Urine Bacteria (Auto) NONE SEEN (NEGATIVE) /HPF Uric Acid Cryst (Auto) 5-10 (NEGATIVE) /HPF Amorphous Crystals FEW (NEGATIVE) /HPF Urine Mucus (Auto) SLIGHT (NEGATIVE) /HPF Urine Culture Reflexed ORDERED SEPARATELY (NO) Urine Glucose NEGATIVE (NEGATIVE) mg/dL Urine HCG, Qual (Negative) Urine Opiates Level (NEGATIVE) Ur Methadone (NEGATIVE) Urine Barbiturates (NEGATIVE) Ur Phencyclidine (PCP) (NEGATIVE) Urine Amphetamine (NEGATIVE) U Benzodiazepine Level (NEGATIVE) Urine Cocaine (NEGATIVE) Urine Marijuana (THC) (NEGATIVE) SARS-CoV-2 (PCR) (NEGATIVE) - Progress Progress: improved Progress Note: 07/17/20 19:22 Pt became more awake during stay but not back to baseline. arrived and stated that MAHONEY was out of character for her. After failed LP, pt given 1L NS yojana bianca/30mg IV Toradol. 07/17/20 20:34 CTA head/neck neck 2gm IV Rocephin Teleneuro consult-worried about meningitis/wants to add acyclovir 07/17/20 22:04 Sars neg - Departure Departure Disposition: Observation Clinical Impression: Mental status alteration, Acute bacterial meningitis Condition: Stable Critical Care Time: Yes Critical Care Time(excluding separately billable procedures): Critical 30-74 mins Referrals: DOCTOR,NO FAMILY [Primary Care Provider] - Instructions: Altered Mental Status (DC)
[2020-07-17] MEDS ORDERED: ROCEPHIN 2 Gm-D5w 50ML BAG** 2 G/50 ML IVPB IV STA (19:16)
[2020-07-17] MEDS ORDERED: ROCEPHIN 2 Gm-D5w 50ML BAG** 2 G/50 ML IVPB IV ONE (19:29)
[2020-07-17] MEDS ORDERED: SODIUM CHLORIDE 0.9% IV SCH (20:15)
[2020-07-17] MEDS ORDERED: ZOVIRAX IV SCH (20:15)
[2020-07-17] MEDS ORDERED: Sodium Chloride 0.9% 100 ML IVPB 100 ML IV ONE (20:58)
[2020-07-17] MEDS ORDERED: Zofran 4 MG/2 ML VIAL IV PRN (21:58)
[2020-07-17] MEDS: Sodium Chloride 0.9% 1000 ML 1,000 ML IV SCH (22:35)
[2020-07-17] MEDS: SODIUM CHLORIDE 0.9% IV SCH (22:45)
[2020-07-17] MEDS: ZOVIRAX IV SCH (22:45)
[2020-07-18] MEDS: TORAdol 30 mg Injection IV PRN ×3 (03:29→18:46)
[2020-07-18] MEDS ORDERED: Sodium Chloride 0.9% 100 ML IVPB 100 ML IV ONE (04:28)
[2020-07-18] MEDS: SODIUM CHLORIDE 0.9% IV SCH ×3 (04:58→21:50)
[2020-07-18] MEDS: ZOVIRAX IV SCH ×3 (04:58→21:50)
[2020-07-18 05:39] LABS: Absolute Neutrophil Ct (ANC) 9.91 (1.4-6.9); Basophil (Absolute #) 0 (0-0.4); Eosinophil % 0.1 % (0.00-5.0); Eosinophil (Absolute #) 0.02 (0-0.5); Hematocrit 33.3 % (35-47); Hemoglobin 11.2 gm/dl (12.0-16.0); Lymphocytes % 23.5 % (24.0-44.0); Mean Cell Volume 100.9 fl (78-100); Mean Corpuscular Hemoglobin 33.9 pg (26-32); Mean Corpuscular Hgb Concent. 33.6 g/dl (32-36); Mean Platelet Volume 10.8 fl (7.5-11.0); Monocyte (Absolute #) 0.82 (0.0-1.3); Monocytes % 5.8 % (0.0-12.0); Neutrophil % 70.6 % (36.0-66.0); Platelet Count 252 K/mm3 (150-450); Red Cell Distribution Width 11.6 % (11.5-14.0); White Blood Count 14.1 K/mm3 (4.0-10.5)
[2020-07-18 05:52] LABS: ALBUMIN 3.2 g/dL (3.5-5.0); ALKALINE PHOSPHATASE 58 U/L (38-126); ANION GAP 6.8 MEQ/L (5-15); BLOOD UREA NITROGEN 9 mg/dL (7-17); CHLORIDE 110 mmol/L (98-107); Carbon Dioxide 23 mmol/L (22-30); Creatinine 1 0.47 mg/dL (0.52-1.04); EST GLOMERULAR FILTRATION RATE > 60.0 ML/MIN; Glucose 95 mg/dL (74-106); Potassium 3.1 mmol/L (3.5-5.1); SGOT/AST 21 U/L (14-36); SGPT/ALT 17 U/L (0-35); SODIUM 137 mmol/L (137-145); Total Protein 5.7 g/dL (6.3-8.2)
--- NOTE | 2020-07-18 08:41 | XRAY ---
Indication: Altered mental status. Conventional contrast enhanced CTA head performed using 100 cc Isovue 370 contrast. Two-dimensional sagittal and coronal reformatted images obtained. Additional 3-dimensional reformatted images obtained using a separate workstation. Comparison: None CTA neck reported separately. Distal internal carotid arteries are bilaterally symmetric without critical stenosis, obstruction, or a female formation. Normal carotid terminus with normal branching A1 and M1 segments bilaterally. More distal anterior cerebral, middle cerebral, anterior communicating, and posterior communicating arteries are normal in CTA appearance. Basilar artery is normal in course and caliber. Normal widely patent branching posterior cerebral and superior cerebellar arteries bilaterally. Venous drainage/sinuses are unremarkable. No abnormal enhancing intra-or extra-axial mass. Impression: Normal CTA head with contrast exam.
--- NOTE | 2020-07-18 08:44 | XRAY ---
Indication: Altered mental status. Conventional contrast enhanced CTA neck performed using 100 cc Isovue 370 contrast. Two-dimensional sagittal and coronal reformatted images obtained. Additional 3-dimensional reformatted images obtained using a separate workstation. Comparison: None Visualized aortic arch is normal in course and caliber with normal patent branching right brachiocephalic, left common carotid, and left subclavian arteries. Examination of the right carotid circulation demonstrates normal CTA appearance to the common carotid, carotid bulb, internal carotid, and external carotid arteries without critical stenosis, obstruction, or AV malformation. Examination of the left carotid circulation also demonstrates normal CTA appearance to the common carotid, carotid bulb, internal carotid, and external carotid arteries. Vertebral arteries are bilaterally symmetric and normal in CTA appearance. Visualized soft tissues demonstrates asymmetry to the parotid and submandibular glands. A few subcentimeter cervical lymph nodes bilaterally, none pathologically enlarged. 4 mm right thyroid hypodense nodule/cyst. Supra and infraglottic airway widely patent. Visualized cervical spine intact. Patient is edentulous. Lung apices demonstrates biapical pulmonary emphysema with fibrosis/scarring, right greater than left. CTA head reported separately. Impression: 1. Normal CTA neck with contrast exam. 2. Incidental tiny right thyroid hypodense nodule/cyst and biapical pulmonary emphysema with fibrosis/scarring.
[2020-07-18] MEDS: Neurontin 100 MG PO SCH ×3 (10:20→21:50)
[2020-07-18] MEDS: DELTASONE 10 MG PO SCH (10:20)
[2020-07-18] MEDS: Sodium Chloride 0.9% 1000 ML 1,000 ML IV SCH (10:21)
[2020-07-18] MEDS: PROTONIX 40 MG IV IV SCH (10:21)
[2020-07-18] MEDS: ESTRACE 1 MG PO SCH ×2 (10:21→21:50)
[2020-07-18] MEDS ORDERED: MORPHINE SULFATE 4 MG INJ IV ONE (12:19)
--- NOTE | 2020-07-18 12:44 | PCM.HP ---
History of Present Illness - Chief Complaint Chief Complaint: ALTERED MENTAL STATUS Date: 07/18/20 History of Present Illness: is a 35 year old female seen this am following ER admission for AMS and suspicion for possible meningitis. Patient reports that she - Review of Systems Constitutional: No Fever, No Chills, No Weight Loss Eyes: Other (Blurry vision patient reports she needs glasses), No Photophobia Ears, Nose, & Throat: No Symptoms Respiratory: No Cough, No Short Of Breath, No Wheezing Cardiac: No Chest Pain, No Edema, No Palpitations Abdominal/Gastrointestinal: Diarrhea, No Abdominal Pain, No Nausea, No Vomiting, No Constipation, No Hematochezia, No Melena, No Appetite Changes Genitourinary Symptoms: Dysuria, No Frequency, No Hematuria, No Flank Pain Musculoskeletal: No Symptoms Skin: No Symptoms Neurological: Headache, No Dizziness, No Seizure Psychological: No Alcohol Abuse, No Anxiety, No Depression, No Suicidal Ideations, No Homicidal Ideations Endocrine: No Symptoms Hematologic/Lymphatic: No Anemia Medications & Allergies Home Medications: Home Medication List estradioL [Estradiol] 1 mg PO BID 04/07/20 [History Confirmed 07/17/20] Allergies/Adverse Reactions: Allergies Allergy/AdvReac Type Severity Reaction Status Date / Time No Known Drug Allergies Allergy Verified 07/17/20 15:58 - Past Medical History Past Medical History: Yes Neurological History: No Pertinent History ENT History: No Pertinent History Cardiac History: No Pertinent History Respiratory History: No Pertinent History Endocrine Medical History: No Pertinent History Musculoskelatal History: Arthritis GI Medical History: No Pertinent History History: No Pertinent History Pyscho-Social History: No Pertinent History Reproductive Disorders: Other Comment: endometriosis - Female History Hx Last Menstrual Period: unsure Are you now?: No - Past Surgical History Past Surgical History: Yes Neuro Surgical History: No Pertinent History Cardiac History: No Pertinent History Respiratory Surgery: No Pertinent History GI Surgical History: Appendectomy, Exploratory Laparoscopy Genitourinary Surgical Hx: No Pertinent History Musculskeletal Surgical Hx: No Pertinent History Female Surgical History: Hysterectomy Other Surgical History: exploratory abdominal surgery. appendectomy. hysterectomy - Social History Smoking Status: Former smoker Exposure to second hand smoke: No Alcohol: Rarely Drug Use: marijuana Significant Family History: no pertinent family hx - Physical Exam Vital Signs: Vital Signs - 24 hr Temp Pulse Resp BP Pulse Ox 07/18/20 11:58 98.4 F 61 18 110/58 99 07/18/20 07:40 98.0 F 78 20 103/54 98 07/18/20 04:00 98.0 F 67 18 101/52 97 07/17/20 23:44 98.5 F 83 18 90/52 98 07/17/20 22:18 98.5 F 83 18 90/52 98 07/17/20 22:05 98 07/17/20 22:02 69 21 96/47 98 07/17/20 21:11 64 109/62 98 07/17/20 20:17 77 135/79 100 07/17/20 19:26 85 124/74 100 07/17/20 18:10 60 18 141/80 98 07/17/20 17:23 56 L 18 116/75 98 07/17/20 16:54 60 16 104/62 100 General Appearance: mild distress Neurologic Exam: alert, oriented x 3, cooperative, 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, normal mood/affect Eye Exam: PERRL/EOMI, other (Mild R sided horizontal nystagmus) Ears, Nose, Throat Exam: moist mucous membranes, No tonsillar exudate Neck Exam: full range of motion Respiratory Exam: normal breath sounds, lungs clear, No diminished breath sounds, No crackles/rales, No wheezing Cardiovascular Exam: regular rate/rhythm, normal heart sounds, murmur, No friction rub, No gallop Gastrointestinal/Abdomen Exam: soft, normal bowel sounds, No tenderness, No distention, No mass, No guarding Pelvic Exam: not done Rectal Exam: not done Back Exam: normal inspection, No CVA tenderness, No rash Skin Exam: normal color, warm, dry Results - Labs Lab/Micro Results: Lab Results-Last 24 Hours 07/17/20 07/17/20 07/17/20 Range/Units 16:19 16:19 16:19 WBC (4.0-10.5) K/mm3 RBC (4.1-5.4) M/mm3 Hgb (12.0-16.0) gm/dl Hct (35-47) % MCV (78-100) fl MCH (26-32) pg MCHC (32-36) g/dl RDW (11.5-14.0) % Plt Count (150-450) K/mm3 MPV (7.5-11.0) fl Gran % (36.0-66.0) % Eos # (Auto) (0-0.5) Absolute Lymphs (auto) (1.0-4.6) Absolute Monos (auto) (0.0-1.3) Lymphocytes % (24.0-44.0) % Monocytes % (0.0-12.0) % Eosinophils % (0.00-5.0) % Basophils % (0.0-0.4) % Absolute Granulocytes (1.4-6.9) Basophils # (0-0.4) Sodium (137-145) mmol/L Potassium (3.5-5.1) mmol/L Chloride (98-107) mmol/L Carbon Dioxide (22-30) mmol/L Anion Gap (5-15) MEQ/L BUN (7-17) mg/dL Creatinine (0.52-1.04) mg/dL Estimated GFR ML/MIN Glucose (74-106) mg/dL Lactic Acid (0.4-2.0) Calcium (8.4-10.2) mg/dL Total Bilirubin (0.2-1.3) mg/dL AST (14-36) U/L ALT (0-35) U/L Alkaline Phosphatase (38-126) U/L Serum Total Protein (6.3-8.2) g/dL Albumin (3.5-5.0) g/dL Urine Color YELLOW (YELLOW) Urine Appearance CLOUDY (CLEAR) Urine pH 5.0 (5-6) Ur Specific [place] 1.017 (1.005-1.025) Urine Protein 30 (Negative) Urine Ketones TRACE (NEGATIVE) Urine Blood SMALL (0-5) Lenard/ul Urine Nitrite NEGATIVE (NEGATIVE) Urine Bilirubin NEGATIVE (NEGATIVE) Urine Urobilinogen NEGATIVE (0-1) mg/dL Ur Leukocyte Esterase NEGATIVE (NEGATIVE) Urine WBC (Auto) 3-5 (0-5) /HPF Urine RBC (Auto) NONE (0-2) /HPF U Epithel Cells (Auto) NONE (FEW) /HPF Urine Bacteria (Auto) NONE SEEN (NEGATIVE) /HPF Uric Acid Cryst (Auto) 5-10 (NEGATIVE) /HPF Amorphous Crystals FEW (NEGATIVE) /HPF Urine Mucus (Auto) SLIGHT (NEGATIVE) /HPF Urine Culture Reflexed ORDERED SEPARATELY (NO) Urine Glucose NEGATIVE (NEGATIVE) mg/dL Urine HCG, Qual NEGATIVE (Negative) Urine Opiates Level NEGATIVE (NEGATIVE) Ur Methadone NEGATIVE (NEGATIVE) Urine Barbiturates NEGATIVE (NEGATIVE) Ur Phencyclidine (PCP) NEGATIVE (NEGATIVE) Urine Amphetamine NEGATIVE (NEGATIVE) U Benzodiazepine Level NEGATIVE (NEGATIVE) Urine Cocaine NEGATIVE (NEGATIVE) Urine Marijuana (THC) POSITIVE (NEGATIVE) SARS-CoV-2 (PCR) (NEGATIVE) 07/17/20 07/17/20 07/17/20 Range/Units 16:30 16:30 18:55 WBC 15.2 H (4.0-10.5) K/mm3 RBC 3.88 L (4.1-5.4) M/mm3 Hgb 13.1 (12.0-16.0) gm/dl Hct 39.2 (35-47) % MCV 101.0 H (78-100) fl MCH 33.8 H (26-32) pg MCHC 33.4 (32-36) g/dl RDW 11.6 (11.5-14.0) % Plt Count 279 (150-450) K/mm3 MPV 10.9 (7.5-11.0) fl Gran % 89.9 H (36.0-66.0) % Eos # (Auto) 0.01 (0-0.5) Absolute Lymphs (auto) 1.15 (1.0-4.6) Absolute Monos (auto) 0.37 (0.0-1.3) Lymphocytes % 7.6 L (24.0-44.0) % Monocytes % 2.4 (0.0-12.0) % Eosinophils % 0.1 (0.00-5.0) % Basophils % 0.0 (0.0-0.4) % Absolute Granulocytes 13.65 H (1.4-6.9) Basophils # 0 (0-0.4) Sodium 137 (137-145) mmol/L Potassium 4.4 (3.5-5.1) mmol/L Chloride 105 (98-107) mmol/L Carbon Dioxide 24 (22-30) mmol/L Anion Gap 12.0 (5-15) MEQ/L BUN 11 (7-17) mg/dL Creatinine 0.45 L (0.52-1.04) mg/dL Estimated GFR > 60.0 ML/MIN Glucose 128 H (74-106) mg/dL Lactic Acid 1.3 (0.4-2.0) Calcium 9.0 (8.4-10.2) mg/dL Total Bilirubin 0.30 (0.2-1.3) mg/dL AST 30 (14-36) U/L ALT 24 (0-35) U/L Alkaline Phosphatase 65 (38-126) U/L Serum Total Protein 7.3 (6.3-8.2) g/dL Albumin 4.2 (3.5-5.0) g/dL Urine Color (YELLOW) Urine Appearance (CLEAR) Urine pH (5-6) Ur Specific [place] (1.005-1.025) Urine Protein (Negative) Urine Ketones (NEGATIVE) Urine Blood (0-5) Lenard/ul Urine Nitrite (NEGATIVE) Urine Bilirubin (NEGATIVE) Urine Urobilinogen (0-1) mg/dL Ur Leukocyte Esterase (NEGATIVE) Urine WBC (Auto) (0-5) /HPF Urine RBC (Auto) (0-2) /HPF U Epithel Cells (Auto) (FEW) /HPF Urine Bacteria (Auto) (NEGATIVE) /HPF Uric Acid Cryst (Auto) (NEGATIVE) /HPF Amorphous Crystals (NEGATIVE) /HPF Urine Mucus (Auto) (NEGATIVE) /HPF Urine Culture Reflexed (NO) Urine Glucose (NEGATIVE) mg/dL Urine HCG, Qual (Negative) Urine Opiates Level (NEGATIVE) Ur Methadone (NEGATIVE) Urine Barbiturates (NEGATIVE) Ur Phencyclidine (PCP) (NEGATIVE) Urine Amphetamine (NEGATIVE) U Benzodiazepine Level (NEGATIVE) Urine Cocaine (NEGATIVE) Urine Marijuana (THC) (NEGATIVE) SARS-CoV-2 (PCR) (NEGATIVE) 07/17/20 07/18/20 07/18/20 Range/Units 20:44 05:00 05:00 WBC 14.1 H (4.0-10.5) K/mm3 RBC 3.30 L (4.1-5.4) M/mm3 Hgb 11.2 L (12.0-16.0) gm/dl Hct 33.3 L (35-47) % MCV 100.9 H (78-100) fl MCH 33.9 H (26-32) pg MCHC 33.6 (32-36) g/dl RDW 11.6 (11.5-14.0) % Plt Count 252 (150-450) K/mm3 MPV 10.8 (7.5-11.0) fl Gran % 70.6 H (36.0-66.0) % Eos # (Auto) 0.02 (0-0.5) Absolute Lymphs (auto) 3.30 (1.0-4.6) Absolute Monos (auto) 0.82 (0.0-1.3) Lymphocytes % 23.5 L (24.0-44.0) % Monocytes % 5.8 (0.0-12.0) % Eosinophils % 0.1 (0.00-5.0) % Basophils % 0.0 (0.0-0.4) % Absolute Granulocytes 9.91 H (1.4-6.9) Basophils # 0 (0-0.4) Sodium 137 (137-145) mmol/L Potassium 3.1 L D (3.5-5.1) mmol/L Chloride 110 H (98-107) mmol/L Carbon Dioxide 23 (22-30) mmol/L Anion Gap 6.8 (5-15) MEQ/L BUN 9 (7-17) mg/dL Creatinine 0.47 L (0.52-1.04) mg/dL Estimated GFR > 60.0 ML/MIN Glucose 95 (74-106) mg/dL Lactic Acid (0.4-2.0) Calcium 8.0 L (8.4-10.2) mg/dL Total Bilirubin 0.50 (0.2-1.3) mg/dL AST 21 (14-36) U/L ALT 17 (0-35) U/L Alkaline Phosphatase 58 (38-126) U/L Serum Total Protein 5.7 L (6.3-8.2) g/dL Albumin 3.2 L (3.5-5.0) g/dL Urine Color (YELLOW) Urine Appearance (CLEAR) Urine pH (5-6) Ur Specific [place] (1.005-1.025) Urine Protein (Negative) Urine Ketones (NEGATIVE) Urine Blood (0-5) Lenard/ul Urine Nitrite (NEGATIVE) Urine Bilirubin (NEGATIVE) Urine Urobilinogen (0-1) mg/dL Ur Leukocyte Esterase (NEGATIVE) Urine WBC (Auto) (0-5) /HPF Urine RBC (Auto) (0-2) /HPF U Epithel Cells (Auto) (FEW) /HPF Urine Bacteria (Auto) (NEGATIVE) /HPF Uric Acid Cryst (Auto) (NEGATIVE) /HPF Amorphous Crystals (NEGATIVE) /HPF Urine Mucus (Auto) (NEGATIVE) /HPF Urine Culture Reflexed (NO) Urine Glucose (NEGATIVE) mg/dL Urine HCG, Qual (Negative) Urine Opiates Level (NEGATIVE) Ur Methadone (NEGATIVE) Urine Barbiturates (NEGATIVE) Ur Phencyclidine (PCP) (NEGATIVE) Urine Amphetamine (NEGATIVE) U Benzodiazepine Level (NEGATIVE) Urine Cocaine (NEGATIVE) Urine Marijuana (THC) (NEGATIVE) SARS-CoV-2 (PCR) NEGATIVE (NEGATIVE) Microbiology 07/17/20 16:19 Urine Culture - Preliminary Catherized NO GROWTH TO DATE - Radiology Impressions Radiology Exams & Impressions: Radiology Procedures Category Date Time Status CT ANGIOGRAPHY NECK [CT] Routine Exams 07/17/20 19:48 Completed CTA HEAD W AND/OR WO CONTRAST [CT] Stat Exams 07/17/20 18:16 Completed ECHO W/2D AND DOPPLER [US] Routine Exams 07/18/20 09:05 Taken HEAD WITHOUT CONTRAST [CT] Stat Exams 07/17/20 16:03 Completed Assessment/Plan (1) Encephalopathy Current Visit: Yes Status: Acute Assessment & Plan: Encephalopathy likely due to infectious process. Code(s): G93.40 - ENCEPHALOPATHY, UNSPECIFIED (2) Headache Current Visit: Yes Status: Acute Code(s): R51.9 - HEADACHE, UNSPECIFIED (3) Murmur Current Visit: Yes Status: Acute Code(s): R01.1 - CARDIAC MURMUR, UNSPECIFIED
[2020-07-18] MEDS: POTASSIUM CHLORIDE 20 mEq IN WATER 100ML 20 MEQ/100 ML BAG IV SCH ×2 (13:14→16:03)
--- NOTE | 2020-07-18 13:18 | ECHO ---
DATE OF PROCEDURE: 07/18/2020 CLINICAL INFORMATION: New cardiac murmur. The M-mode 2D, and Doppler echocardiogram including color flow Doppler shows the left ventricle is normal in size at 4.1 cm. There is no thrombus present. The septal wall thickness is normal at 0.8 cm. The left ventricular posterior wall thickness is normal at 1.0 cm. There is normal contractility of the left ventricle. The ejection fraction calculated to be 72%. The right ventricle is grossly normal. The left atrium is normal in size at 2.8 cm. The interatrial septum is intact. The right atrium is normal. The aortic valve opens well. There is no aortic regurgitation present. There is mitral valve leaflet thickening associated with mild mitral regurgitation. Mitral valve prolapse cannot be ruled out. There is mild tricuspid regurgitation. The right ventricular systolic pressure is calculated to be 35 mm of Mercury. The pulmonic valve is not well visualized. The aortic root is normal at 3.1 cm. There is no pericardial effusion present. IMPRESSION: 1) MILD TRICUSPID REGURGITATION. 2) MILD PULMONARY HYPERTENSION. 3) MILD MITRAL REGURGITATION. 4) MITRAL VALVE PROLAPSE CANNOT BE RULED OUT. 5) NORMAL CONTRACTILITY OF THE LEFT VENTRICLE.
[2020-07-18] MEDS ORDERED: PHARMACY DOSING REQUIRED: VANCOMYCIN IV STA (16:03)
[2020-07-18] MEDS: VANCOMYCIN 1.25 GM/250 ML BAG 1.25 GM/250 ML PIGGYBACK IV SCH (17:44)
[2020-07-18] MEDS: MORPHINE SULFATE 4 MG INJ IV PRN ×2 (17:45→21:50)
[2020-07-18] MEDS: ROCEPHIN 2 Gm-D5w 50ML BAG** 2 G/50 ML IVPB IV SCH (20:13)
[2020-07-18] MEDS ORDERED: ROCEPHIN 1 Gm-D5w 50 ml Bag** 1 G/50 ML IVPB IV SCH (22:00)
[2020-07-19] MEDS: Sodium Chloride 0.9% 1000 ML 1,000 ML IV SCH ×2 (00:56→14:44)
[2020-07-19] MEDS: TORAdol 30 mg Injection IV PRN (00:57)
[2020-07-19] MEDS: SODIUM CHLORIDE 0.9% IV SCH ×3 (05:11→21:27)
[2020-07-19] MEDS: ZOVIRAX IV SCH ×3 (05:11→21:27)
[2020-07-19] MEDS: VANCOMYCIN 1.25 GM/250 ML BAG 1.25 GM/250 ML PIGGYBACK IV SCH ×2 (06:18→19:00)
[2020-07-19 06:21] LABS: Creatinine 1 0.47 mg/dL (0.52-1.04); EST GLOMERULAR FILTRATION RATE > 60.0 ML/MIN
[2020-07-19] MEDS: ROCEPHIN 2 Gm-D5w 50ML BAG** 2 G/50 ML IVPB IV SCH ×2 (07:14→20:26)
[2020-07-19] MEDS: Neurontin 100 MG PO SCH ×3 (08:34→21:28)
[2020-07-19] MEDS: PROTONIX 40 MG IV IV SCH (08:34)
[2020-07-19] MEDS: MORPHINE SULFATE 4 MG INJ IV PRN (08:34)
[2020-07-19] MEDS: DELTASONE 10 MG PO SCH ×2 (08:34→09:13)
[2020-07-19] MEDS: Acidophilus TABLET PO SCH (09:12)
[2020-07-19] MEDS: ESTRACE 1 MG PO SCH ×2 (09:13→21:28)
[2020-07-19 09:28] LABS: ALBUMIN 2.8 g/dL (3.5-5.0); ALKALINE PHOSPHATASE 43 U/L (38-126); ANION GAP 4.6 MEQ/L (5-15); BLOOD UREA NITROGEN 5 mg/dL (7-17); CHLORIDE 113 mmol/L (98-107); Calcium 7.9 mg/dL (8.4-10.2); Carbon Dioxide 25 mmol/L (22-30); Creatinine 1 0.48 mg/dL (0.52-1.04); EST GLOMERULAR FILTRATION RATE > 60.0 ML/MIN; Glucose 104 mg/dL (74-106); Hematocrit 31.7 % (35-47); Hemoglobin 10.2 gm/dl (12.0-16.0); Mean Cell Volume 102.9 fl (78-100); Mean Corpuscular Hemoglobin 33.1 pg (26-32); Mean Corpuscular Hgb Concent. 32.2 g/dl (32-36); Mean Platelet Volume 11.6 fl (7.5-11.0); Platelet Count 209 K/mm3 (150-450); Potassium 3.6 mmol/L (3.5-5.1); Red Blood Count 3.08 M/mm3 (4.1-5.4); SGOT/AST 19 U/L (14-36); SGPT/ALT 16 U/L (0-35); SODIUM 139 mmol/L (137-145); Total Protein 5.2 g/dL (6.3-8.2); White Blood Count 10.2 K/mm3 (4.0-10.5)
--- NOTE | 2020-07-19 12:49 | PCM.NOTE ---
Date and Time: 07/19/20 1241 Subjective Assessment: Patient reports she feels better today then yesterday. - Review of Systems Constitutional: No Fever, No Chills Ears, Nose, & Throat: No Symptoms Respiratory: No Symptoms Cardiac: No Symptoms Abdominal/Gastrointestinal: Nausea, No Abdominal Pain, No Vomiting, No Diarrhea, No Constipation Genitourinary Symptoms: No Symptoms Musculoskeletal: Neck Pain Skin: No Symptoms Neurological: Headache, No Dizziness, No Focal Weakness, No Gait Changes, No Parasthesia Psychological: Drug Abuse, No Alcohol Abuse, No Anxiety, No Depression Endocrine: No Symptoms Hematologic/Lymphatic: No Symptoms Immunological/Allergic: No Symptoms Objective Exam General Appearance: mild distress, thin Neurologic Exam: alert, oriented x 3, 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, 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, normal mood/affect Skin Exam: normal color, warm, dry Eye Exam: PERRL, EOMI, eyes nml inspection, No scleral icterus, No photophobia Ears, Nose, Throat Exam: normal ENT inspection, moist mucous membranes Neck Exam: normal inspection, non-tender, full range of motion, No meningismus Respiratory Exam: normal breath sounds, No respiratory distress, No diminished breath sounds, No crackles/rales, No wheezing Cardiovascular Exam: regular rate/rhythm, normal heart sounds, murmur, No friction rub, No gallop Gastrointestinal/Abdomen Exam: soft, normal bowel sounds, No tenderness, No distention, No mass, No guarding OBJECTIVE DATA Vital Signs: Vital Signs - 24 hr Temp Pulse Resp BP Pulse Ox 07/19/20 04:18 98.1 F 59 L 16 99/55 98 07/18/20 23:42 98.4 F 58 L 17 88/52 97 07/18/20 19:59 98.6 F 83 16 108/57 99 07/18/20 16:00 68 18 92/52 96 Pain Assessment - Last Documented Pain Intensity 2 Pain Scale Used 0-10 Pain Scale Intake and Output: Intake & Output 07/17/20 07/18/20 07/19/20 07/20/20 11:59 11:59 11:59 11:59 Intake Total 958 3513 Output Total 500 2250 Balance 458 1263 Weight 58.2 kg Lab Results: Lab Results-Last 24 Hours 07/18/20 07/19/20 07/19/20 Range/Units 21:40 04:55 06:00 WBC 10.2 (4.0-10.5) K/mm3 RBC 3.08 L (4.1-5.4) M/mm3 Hgb 10.2 L (12.0-16.0) gm/dl Hct 31.7 L (35-47) % MCV 102.9 H (78-100) fl MCH 33.1 H (26-32) pg MCHC 32.2 (32-36) g/dl RDW 12.0 (11.5-14.0) % Plt Count 209 (150-450) K/mm3 MPV 11.6 H (7.5-11.0) fl Sodium (137-145) mmol/L Potassium 3.6 (3.5-5.1) mmol/L Chloride (98-107) mmol/L Carbon Dioxide (22-30) mmol/L Anion Gap (5-15) MEQ/L BUN (7-17) mg/dL Creatinine 0.47 L (0.52-1.04) mg/dL Estimated GFR > 60.0 ML/MIN Glucose (74-106) mg/dL Calcium (8.4-10.2) mg/dL Total Bilirubin (0.2-1.3) mg/dL AST (14-36) U/L ALT (0-35) U/L Alkaline Phosphatase (38-126) U/L Serum Total Protein (6.3-8.2) g/dL Albumin (3.5-5.0) g/dL 07/19/20 Range/Units 06:00 WBC (4.0-10.5) K/mm3 RBC (4.1-5.4) M/mm3 Hgb (12.0-16.0) gm/dl Hct (35-47) % MCV (78-100) fl MCH (26-32) pg MCHC (32-36) g/dl RDW (11.5-14.0) % Plt Count (150-450) K/mm3 MPV (7.5-11.0) fl Sodium 139 (137-145) mmol/L Potassium 3.6 (3.5-5.1) mmol/L Chloride 113 H (98-107) mmol/L Carbon Dioxide 25 (22-30) mmol/L Anion Gap 4.6 L (5-15) MEQ/L BUN 5 L (7-17) mg/dL Creatinine 0.48 L (0.52-1.04) mg/dL Estimated GFR > 60.0 ML/MIN Glucose 104 (74-106) mg/dL Calcium 7.9 L (8.4-10.2) mg/dL Total Bilirubin 0.30 (0.2-1.3) mg/dL AST 19 (14-36) U/L ALT 16 (0-35) U/L Alkaline Phosphatase 43 (38-126) U/L Serum Total Protein 5.2 L (6.3-8.2) g/dL Albumin 2.8 L (3.5-5.0) g/dL Radiology Exams: Radiology Procedures Category Date Time Status CT ANGIOGRAPHY NECK [CT] Routine Exams 07/17/20 19:48 Completed CTA HEAD W AND/OR WO CONTRAST [CT] Stat Exams 07/17/20 18:16 Completed ECHO W/2D AND DOPPLER [US] Routine Exams 07/18/20 09:05 Draft HEAD WITHOUT CONTRAST [CT] Stat Exams 07/17/20 16:03 Completed Multi-Disciplinary Progress Notes: Multi-Disciplinary Progress Notes 07/18/20 16:32 Pharmacy Note by Russell Haas VANCOMYCIN DOSING FOR POSSIBLE MENIGITIS Pharmacokinetic dosing service Date: Time: Objective: Patient: tristen paredes Floor: [address] Age: 35 yo Serum creatinine: 0.47 mg/dL Height: 66 Inches Weight (kg): 58 Diagnosis: POSSIBLE MENINGITIS Relevant medical/social history: Cultures and sensitivities: PENDING Other labs: WBC = 14 SR CR = 0.47 Assessment: IBW (kg): 59.30 Dosing wt(kg): 58 Estimated Creatinine clearance (ml/min): 130 Clearance limited to 130 ml/min to reduce risk of overdosing. CRCL method: Cockcroft and Gault using ibw(default). Drug selected: Vancomycin Loading dose (mg): 0 Vd (liters): 40.6 (factor used: 0.7 L/kg) Dominik (hr-1): 0.112 Half life (hrs): 6.19 Recommended dose: 1250 mg Interval: 12 hrs Infusion time (hrs): 1.5 Predicted peak (mcg/mL): 38.3 Predicted trough (mcg/mL): 11.82 Total body weight is being used for vancomycin dosing. Renal function is stable [ XXX] /unstable [ ] Recommendations: Give Vancomycin 1250 mg q 12 hrs with an expected Cpeak of 38.3 mcg/ml and an expected Ctrough of 11.82 mcg/ml Renal dosing of other antibiotics (review renal dosing of other medications and list guidelines here): Thank you for the consult, will continue to follow. Signature: RUSSELL HAAS TROUGH FRIDAY AM DAILY CREAT Initialized on 07/18/20 16:32 - END OF NOTE 07/18/20 15:10 Case Management Note by Justina Gracia NOTED ON ADMISSION- PATIENT STATES THESE ARE NEW AND SHE THINKS THEY CAME IN WITH SOME STUFF SHE BROUGHT IN THE HOUSE FROM STORAGE- HOUSE IS CURRENTLY BEING TREATED Initialized on 07/18/20 15:10 - END OF NOTE Assessment/Plan (1) Encephalopathy Current Visit: Yes Status: Acute Code(s): G93.40 - ENCEPHALOPATHY, UNSPECIFIED (2) Headache Current Visit: Yes Status: Acute Code(s): R51.9 - HEADACHE, UNSPECIFIED (3) Murmur Current Visit: Yes Status: Acute Code(s): R01.1 - CARDIAC MURMUR, UNSPECI FIED
[2020-07-19] MEDS ORDERED: Sodium Chloride 0.9% 100 ML IVPB 100 ML IV ONE (14:14)
[2020-07-19 14:56] LABS: Folate (Folic Acid) 7.21 ng/mL (2.76 - >20)
[2020-07-19] MEDS ORDERED: TYLENOL EXTRA STRENGTH 500 MG PO PRN (21:26)
[2020-07-20] MEDS: Sodium Chloride 0.9% 1000 ML 1,000 ML IV SCH (04:37)
[2020-07-20] MEDS: ZOVIRAX IV SCH (05:08)
[2020-07-20] MEDS: SODIUM CHLORIDE 0.9% IV SCH (05:08)
[2020-07-20] MEDS: VANCOMYCIN 1.25 GM/250 ML BAG 1.25 GM/250 ML PIGGYBACK IV SCH (06:31)
[2020-07-20 06:49] LABS: Creatinine 1 0.51 mg/dL (0.52-1.04); EST GLOMERULAR FILTRATION RATE > 60.0 ML/MIN
[2020-07-20 07:53] VITALS: PULSE 47
[2020-07-20] MEDS: ROCEPHIN 2 Gm-D5w 50ML BAG** 2 G/50 ML IVPB IV SCH (08:18)
[2020-07-20] MEDS: ESTRACE 1 MG PO SCH (09:38)
[2020-07-20] MEDS: Acidophilus TABLET PO SCH (09:38)
[2020-07-20] MEDS: Neurontin 100 MG PO SCH (09:38)
[2020-07-20] MEDS: PROTONIX 40 MG IV IV SCH (09:38)
[2020-07-20] MEDS: DELTASONE 10 MG PO SCH (09:38)
[2020-07-20 11:44] LABS: Hematocrit 32.3 % (35-47); Hemoglobin 10.6 gm/dl (12.0-16.0); Mean Cell Volume 102.5 fl (78-100); Mean Corpuscular Hemoglobin 33.7 pg (26-32); Mean Corpuscular Hgb Concent. 32.8 g/dl (32-36); Mean Platelet Volume 11.7 fl (7.5-11.0); Platelet Count 228 K/mm3 (150-450); Red Blood Count 3.15 M/mm3 (4.1-5.4); Red Cell Distribution Width 11.9 % (11.5-14.0); White Blood Count 11.1 K/mm3 (4.0-10.5)
[2020-07-20 12:08] VITALS: BP 110/72; O2SAT 97
--- NOTE | 2020-07-20 13:16 | PCM.DS ---
Discharge Summary Date of Admission: 07/17/20 22:13 Date of Discharge: 07/20/20 Admitting Physician: CLINTON BACON MD Consults: Tele neuro was consulted in ER Primary Care Provider: NO FAMILY DOCTOR Allergies Allergies No Known Drug Allergies Allergy (Verified 07/17/20 15:58) Hospital Summary - Vitals & Intake/Output Vital Signs: Vital Signs Temperature 98.6 F 07/20/20 12:00 Pulse Rate 47 L 07/20/20 12:00 Respiratory Rate 18 07/20/20 12:00 Blood Pressure 110/72 07/20/20 12:00 O2 Sat by Pulse Oximetry 97 07/20/20 12:00 Intake & Output: Intake & Output 07/18/20 07/19/20 07/20/20 07/21/20 11:59 11:59 11:59 11:59 Intake Total 958 3513 3341 360 Output Total 500 2250 Balance 458 1263 3341 360 Weight 58.2 kg - Lab Result Diagrams: 07/20/20 05:30 07/20/20 05:30 Lab Results-Last 24 Hrs: Lab Results-Last 24 Hours 07/19/20 07/20/20 07/20/20 Range/Units 05:00 05:30 05:30 WBC 11.1 H (4.0-10.5) K/mm3 RBC 3.15 L (4.1-5.4) M/mm3 Hgb 10.6 L (12.0-16.0) gm/dl Hct 32.3 L (35-47) % MCV 102.5 H (78-100) fl MCH 33.7 H (26-32) pg MCHC 32.8 (32-36) g/dl RDW 11.9 (11.5-14.0) % Plt Count 228 (150-450) K/mm3 MPV 11.7 H (7.5-11.0) fl Creatinine 0.51 L (0.52-1.04) mg/dL Estimated GFR > 60.0 ML/MIN Vitamin B12 511 (239-931) pg/mL Folic Acid 7.21 (2.76 - >20) ng/mL Micro Results-Entire Visit: Microbiology 07/17/20 16:19 Urine Culture - Final Catherized NO GROWTH 07/17/20 19:35 Blood Culture - Preliminary Blood NO GROWTH TO DATE 07/17/20 18:30 Blood Culture - Preliminary Blood NO GROWTH TO DATE Discharge Exam General Appearance: no apparent distress, thin Neurologic Exam: alert, oriented x 3, 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, 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, normal mood/affect, nml cerebellar function, No disoriented, No confusion Final Diagnosis/Problem List - Final Discharge Diagnosis/Problem (1) Encephalopathy Current Visit: Yes Status: Acute Code(s): G93.40 - ENCEPHALOPATHY, UNSPECIFIED (2) Headache Current Visit: Yes Status: Acute Code(s): R51.9 - HEADACHE, UNSPECIFIED (3) Murmur Current Visit: Yes Status: Acute Code(s): R01.1 - CARDIAC MURMUR, UNSPECIFIED - Discharge Disposition: Home, Self-Care Condition: Stable Prescriptions: New Acyclovir 400 mg PO Q6H 14 Days #56 tablet Prednisone 10 mg [Deltasone 10 mg] 10 mg PO DAILY 3 Days #3 tablet Levofloxacin 750 mg PO DAILY 14 Days #14 tablet Continue estradioL [Estradiol] 1 mg PO BID Additional Instructions: Patient needs follow up on friday or of next week. She wont be able to return to work until she is evaluated in clinic. She is to return to ER immediately if worsening symptoms. She can take OTC advil or tylenol for headaches. Follow up with: CLINTON BACON MD [ACTIVE STAFF] -
[2020-07-20] MEDS ORDERED: TROUGH DRUG LEVELS IJ ONE (16:00)
== END 2020-07-20 14:20 | disposition home or self-care (01) ==
LOC: ED 15:49 → MED SURG 22:13
PROVIDERS: ADMIT Family Medicine; ATTEND Family Medicine
DX: G93.40 Encephalopathy, unspecified (principal); R41.82 Altered mental status, unspecified; R51.9 Headache, unspecified; R01.1 Cardiac murmur, unspecified; Z79.899 Other long term (current) drug therapy; R53.1 Weakness; R53.83 Other fatigue
CPT/HCPCS: 36415; 70450; 70496; 70498; 80053; 80307; 81001; 82565; 82607; 82746; 83605; 84132; 84443; 84703; 85025; 85027; 87040; 87086; 93268; 93306; 96360; 96374; 99284; 99291; G0378; Q3014; U0003; J0133; J0696; J1885; J2270; J2405; J3480; A9270-GY; J3370

== ENCOUNTER 2021-01-19 14:37 | Emergency (ER) | payer OTHER ==
[2021-01-19 15:31] LABS: Absolute Neutrophil Ct (ANC) 8.48 (1.4-6.9); BASOPHIL % 0.2 % (0.0-0.4); Basophil (Absolute #) 0.02 (0-0.4); Eosinophil % 0.5 % (0.00-5.0); Eosinophil (Absolute #) 0.05 (0-0.5); Hematocrit 40.5 % (35-47); Hemoglobin 13.1 gm/dl (12.0-16.0); Lymphocyte (Absolute #) 2.28 (1.0-4.6); Lymphocytes % 20.6 % (24.0-44.0); Mean Cell Volume 99.5 fl (78-100); Mean Corpuscular Hemoglobin 32.2 pg (26-32); Mean Corpuscular Hgb Concent. 32.3 g/dl (32-36); Mean Platelet Volume 10.3 fl (7.5-11.0); Monocyte (Absolute #) 0.23 (0.0-1.3); Monocytes % 2.1 % (0.0-12.0); Neutrophil % 76.6 % (36.0-66.0); Platelet Count 329 K/mm3 (150-450); Red Blood Count 4.07 M/mm3 (4.1-5.4); Red Cell Distribution Width 12.1 % (11.5-14.0); White Blood Count 11.1 K/mm3 (4.0-10.5)
[2021-01-19 15:38] LABS: ALBUMIN 4.6 g/dL (3.5-5.0); ALKALINE PHOSPHATASE 67 U/L (38-126); ANION GAP 14.7 MEQ/L (5-15); BLOOD UREA NITROGEN 8 mg/dL (7-17); CHLORIDE 108 mmol/L (98-107); Calcium 9.3 mg/dL (8.4-10.2); Carbon Dioxide 22 mmol/L (22-30); Creatinine 1 0.53 mg/dL (0.52-1.04); EST GLOMERULAR FILTRATION RATE > 60.0 ML/MIN; Glucose 126 mg/dL (74-106); Potassium 3.8 mmol/L (3.5-5.1); SGOT/AST 27 U/L (14-36); SGPT/ALT 20 U/L (0-35); SODIUM 141 mmol/L (137-145); Total Protein 7.4 g/dL (6.3-8.2)
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
--- NOTE | 2021-01-19 15:47 | XRAY ---
Indication: Seizure. Negative MRI brain October 16, 2020. Multiple contiguous axial images obtained through the head without contrast. Comparison: July 17, 2020. Normal appearing brain parenchyma, ventricles, and bony calvarium. Visualized paranasal sinuses and mastoid air cells are clear. Impression: Continued normal CT head without contrast exam.
[2021-01-19 17:11] LABS: Appearance SLIGHTLY CLOUDY (CLEAR); Bilirubin NEGATIVE (NEGATIVE); Blood NEGATIVE Ery/ul (0-5); Glucose NEGATIVE (NEGATIVE); Ketones NEGATIVE (NEGATIVE); Leukocyte Esterase NEGATIVE (NEGATIVE); Mucus SLIGHT /HPF (NEGATIVE); Nitrite NEGATIVE (NEGATIVE); Protein,Urine Dip 30 (Negative); RBC 0-2 /HPF (0-2); Specific Gravity 1.019 (1.005-1.025); Urobilinogen NEGATIVE mg/dL (0-1); WBC 0-2 /HPF (0-5)
[2021-01-19 17:26] LABS: Amphetamine,Urine NEGATIVE (NEGATIVE); Barbiturate,Urine NEGATIVE (NEGATIVE); Benzodiazepine,Urine NEGATIVE (NEGATIVE); Cocaine,Urine NEGATIVE (NEGATIVE); Methadone,Urine NEGATIVE (NEGATIVE); Opiate,Urine NEGATIVE (NEGATIVE); PCP,Urine NEGATIVE (NEGATIVE); THC,Urine POSITIVE (NEGATIVE)
[2021-01-19 17:55] VITALS: BP 116/63; PULSE 52
[2021-01-19 21:01] VITALS: O2SAT 98
== END 2021-01-19 17:55 | disposition home or self-care (01) ==
LOC: ED 14:37
DX: R56.9 Unspecified convulsions (principal)
CPT/HCPCS: 36000; 36415; 70450; 80053; 80307; 81001; 85025; 99284; G0480

== ENCOUNTER 2025-07-27 08:24 | Emergency (ER) | payer MEDICARE ==
[2025-07-27 08:34] VITALS: TEMP 97; O2SAT 100
--- NOTE | 2025-07-27 08:34 | ERPHSYRPT ---
- History of Present Illness Time Seen by Provider: 07/27/25 08:34 Source: patient, family Exam Limitations: no limitations Physician History: This is a 40-year-old white female patient arrives by private vehicle accompanied by family/friend and is a patient of Dr. Shah with the complaint of syncopal episode. Patient states in the last few days she has not felt well. She has had decreased oral intake, has complaints of a headache and has not taken her medication in the last 3 days. However, this morning she did take her medications. While at work today she had near syncopal episode with associated chest pain that she describes as an ache that is nonradiating, central and substernal. She has never been diagnosed with coronary artery disease. Patient has a history of depression, migraine headaches, peripheral neuropathy, seizure disorder, anxiety, degenerative disc disease and bradycardia. Patient denies hitting her head. She has not been knowingly, exposed to anybody with viral illness or similar symptoms. Patient states that her fingers and hands have been cramping this morning. She states that she was not breathing heavily until she started having the cramping in her hands and fingers. Patient appears very anxious Witnessed: other ([employer]) Prior Episodes: single episode today Timing/Duration: today Precipitating Factors: unknown Context: emotional stress Loss of Consciousness: no loss of consciousness Charcter of event(s): felt faint, almost passed out Allergies/Adverse Reactions: No Known Drug Allergies Allergy (Verified 07/12/22 12:25) Home Medications: Lamotrigine [Lamotrigine (Blue)] 100 mg PO BID 11/29/21 [History] Brexpiprazole [Rexulti] 1 tab PO DAILY 07/12/22 [History] Duloxetine HCl 30 mg [Cymbalta 30 MG Capsule] 60 mg PO DAILY 07/12/22 [History] Rizatriptan Benzoate [Rizatriptan] 1 tab PO UD PRN 07/12/22 [History] Topiramate 25 mg [Topamax 25 MG] 50 mg PO BID 07/12/22 [History] Dextroamphetamine/Amphetamine [Dextroamp-Amphetamin 30 mg Tab] 30 mg PO DAILY 07/27/25 [History] Estradiol 1 mg [Estrace 1 mg] 2 mg PO DAILY 07/27/25 [History] Estradiol 1 mg [Estrace 1 mg] 2 mg PO HS 07/27/25 [History] Hx Tetanus, Diphtheria Vaccination/Date Given: No Hx Influenza Vaccination/Date Given: No Hx Pneumococcal Vaccination/Date Given: No Travel Risk - International Travel Have you traveled outside of the country in past 3 weeks: No - Emerging Infectious Disease Are you exhibiting symptoms associated with any current EIDs: No - Past Medical History Pertinent Past Medical History: Yes Neurological History: Migraines, Peripheral Neuropathy, Seizures ENT History: No Pertinent History Cardiac History: Other Respiratory History: No Pertinent History Endocrine Medical History: No Pertinent History Musculoskeletal History: Other GI Medical History: No Pertinent History History: No Pertinent History Psycho-Social History: Anxiety Female Reproductive Disorders: Other Other Medical History: DEGENERATIVE DISC DISEASES. BRADYCARDIA. SEIZURE DISORDER - Past Surgical History Past Surgical History: Yes Neuro Surgical History: No Pertinent History Cardiac: No Pertinent History Respiratory: No Pertinent History Gastrointestinal: Appendectomy, Exploratory Laparoscopy Genitourinary: No Pertinent History Musculoskeletal: No Pertinent History Female Surgical History: Hysterectomy Other Surgical History: exploratory abdominal surgery. appendectomy. hysterectomy Significant Family History: no pertinent family hx - Social History Drug Use: marijuana - Review of Systems Constitutional: No Symptoms, Weakness Eyes: No Symptoms Ears, Nose, & Throat: No Symptoms Respiratory: No Symptoms Cardiac: Chest Pain (Describes a nonradiating substernal, central ache) Abdominal/Gastrointestinal: No Symptoms Genitourinary Symptoms: No Symptoms Musculoskeletal: Other (Cramping of hands and fingers) Skin: No Symptoms Neurological: No Symptoms Psychological: No Symptoms Endocrine: No Symptoms Hematologic/Lymphatic: No Symptoms Immunological/Allergic: No Symptoms All Other Systems: Reviewed and Negative Physical Exam - Nursing Vital Signs Nursing Vital Signs: Initial Vital Signs Temperature 97 F 07/27/25 08:25 Pulse Rate 89 07/27/25 08:25 Respiratory Rate 28 H 07/27/25 08:25 Blood Pressure 130/79 07/27/25 08:25 O2 Sat by Pulse Oximetry 100 07/27/25 08:25 Pain Scale Pain Intensity 1 - Lily Coma Scale Best Eye Response ([place]): (4) open spontaneously Best Verbal Response ([place]): (5) oriented Best Motor Response ([place]): (6) obeys commands Liyl Total: 15 - Physical Exam General Appearance: no apparent distress, alert, anxiety Eye Exam: bilateral eye: normal inspection, PERRL, EOMI Ears, Nose, Throat Exam: dry mucous membranes Neck Exam: normal inspection, non-tender, supple, full range of motion Respiratory: normal breath sounds, lungs clear, airway intact, No chest tenderness, No respiratory distress Cardiovascular: regular rate/rhythm, normal heart sounds, normal peripheral pulses Gastrointestinal: soft, normal bowel sounds, No tenderness Pelvic Exam: not done Rectal Exam: not done Back Exam: normal inspection, normal range of motion, No CVA tenderness, No vertebral tenderness Extremity Exam: normal inspection, normal range of motion, pelvis stable 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 No acute ischemia on today's twelve-lead EKG. It is not significantly different from twelve-lead EKG dated 11/29/2021.) Ordered Tests: Active Orders 24 hr Category Date Time Status Hand Brim Ironer STAT Care 07/27/25 08:47 Active EKG-ER Only STAT Care 07/27/25 08:45 Completed IV Insertion STAT Care 07/27/25 08:45 Active Pulse Oximetry (ED) STAT Care 07/27/25 08:45 Active HEAD WITHOUT CONTRAST [CT] Stat Exams 07/27/25 08:48 Completed BLOOD CULTURE Stat Lab 07/27/25 09:12 Received CBC W DIFF Stat Lab 07/27/25 09:00 Completed CMP Stat Lab 07/27/25 09:00 Completed ETHYL ALCOHOL Stat Lab 07/27/25 09:00 Completed Lactic Acid Stat Lab 07/27/25 08:57 Completed Lactic Acid Stat Lab 07/27/25 11:02 Received MAGNESIUM Stat Lab 07/27/25 09:00 Completed MONO SCREEN Stat Lab 07/27/25 09:00 Completed NT PRO BNPII Stat Lab 07/27/25 09:00 Completed TROPONIN Q4H Lab 07/27/25 09:00 Completed TROPONIN Q4H Lab 07/27/25 13:00 Ordered TROPONIN Q4H Lab 07/27/25 17:00 Ordered UA W/RFX UR CULTURE Stat Lab 07/27/25 08:47 Completed Urine Triage Profile Stat Lab 07/27/25 08:47 Completed Medication Summary Discontinued Medications Generic Name Dose Route Start Last Admin Trade Name Mike PRN Reason Stop Dose Admin Aspirin 324 mg 07/27/25 08:45 07/27/25 08:57 Aspirin 81 Mg Tab.Chew PO 07/27/25 08:46 324 mg STAT ONE Administration Sodium Chloride 1,000 mls @ 999 mls/hr 07/27/25 08:45 07/27/25 10:02 Sodium Chloride 0.9% 1000 Ml IV 07/27/25 09:45 Infused .Q1H1M STA Infusion Sodium Chloride Confirm 07/27/25 08:56 Sodium Chloride 0.9% 1000 Ml Administered 07/27/25 08:57 Dose 1,000 mls @ ud .ROUTE .STK-MED ONE Lactated Ringer's 1,000 mls @ 999 mls/hr 07/27/25 09:52 07/27/25 11:39 Lactated Ringers IV 07/27/25 10:52 Infused .Q1H1M ONE Infusion Lactated Ringer's Confirm 07/27/25 09:55 Lactated Ringers Administered 07/27/25 09:56 Dose 1,000 mls @ ud IV .STK-MED ONE Magnesium Oxide 400 mg 07/27/25 10:53 07/27/25 11:23 Magnesium Oxide 400 Mg Tablet PO 07/27/25 10:54 400 mg STAT ONE Administration Magnesium Oxide Confirm 07/27/25 11:22 Magnesium Oxide 400 Mg Tablet Administered 07/27/25 11:23 Dose 400 mg .ROUTE .STK-MED ONE Potassium Chloride 20 meq 07/27/25 10:52 07/27/25 11:22 Potassium Chloride Tab 10 Meq Tab PO 07/27/25 10:53 20 meq STAT ONE Administration Potassium Chloride Confirm 07/27/25 11:22 Potassium Chloride Tab 10 Meq Tab Administered 07/27/25 11:23 Dose 40 meq .ROUTE .STK-MED ONE Lab/Rad Data: Laboratory Result Diagrams 07/27/25 09:00 07/27/25 09:00 Laboratory Results 07/27/25 07/27/25 07/27/25 Range/Units 09:12 09:00 09:00 WBC (3.98-10.04) x10^3/uL RBC (3.93-5.22) x10^6/uL Hgb (11.2-15.7) g/dL Hct (34.1-44.9) % MCV (79.4-94.8) fL MCH (25.6-32.2) pg MCHC (32.2-35.5) g/dL RDW (11.7-14.4) % Plt Count (182-369) x10^3/uL MPV (9.4-12.3) fL Gran % (34.0-71.1) % Immature Gran % (Auto) (0.001-0.429) % Nucleat RBC Rel Count (0.00-0.2) % Eos # (Auto) (0.04-0.36) x10^3/uL Immature Gran # (Auto) (0.001-0.031) x10^3u/L Absolute Lymphs (auto) (1.18-3.74) x10^3/uL Absolute Monos (auto) (0.24-0.86) x10^3/uL Absolute Nucleated RBC (0.00-0.012) x10^3u/L Lymphocytes % (19.3-51.7) % Monocytes % (4.7-12.5) % Eosinophils % (0.7-5.8) % Basophils % (0.1-1.2) % Absolute Granulocytes (1.56-6.13) x10^3/uL Basophils # (0.01-0.08) x10^3/uL Sodium (135-145) mmol/L Potassium (3.5-5.1) mmol/L Chloride (98-107) mmol/L Carbon Dioxide (22-30) mmol/L Anion Gap (5-15) MEQ/L BUN (7-17) mg/dL Creatinine (0.52-1.04) mg/dL Estimated GFR ML/MIN Glucose (74-106) mg/dL Lactic Acid (0.4-2.0) Calcium (8.4-10.2) mg/dL Magnesium (1.6-2.3) mg/dL Total Bilirubin (0.2-1.3) mg/dL AST (14-36) U/L ALT (0-35) U/L Alkaline Phosphatase (38-126) U/L Troponin I < 0.012 (0.000-0.033) ng/mL NT-Pro-B Natriuret Pep (<300) pg/mL Serum Total Protein (6.3-8.2) g/dL Albumin (3.5-5.0) g/dL Urine Color (Yellow) Urine Appearance (Clear) Urine pH (4.6-8.0) Ur Specific [place] (1.005-1.030) Urine Protein (Negative) Urine Glucose (UA) (Negative) mg/dL Urine Ketones (Negative) Urine Blood (Negative) Urine Nitrite (Negative) Urine Bilirubin (Negative) Urine Urobilinogen (0.2) mg/dL Ur Leukocyte Esterase (Negative) U Hyaline Cast (Auto) (0-2) /LPF Urine Microscopic RBC (0-5) /HPF Urine Microscopic WBC (0-5) /HPF Ur Epithelial Cells (None Seen) /HPF Urine Bacteria (None Seen) /HPF Urine Culture Reflexed (NO) Urine Opiates Level (NEGATIVE) Ur Methadone (NEGATIVE) Urine Barbiturates (NEGATIVE) Ur Phencyclidine (PCP) (NEGATIVE) Urine Amphetamine (NEGATIVE) U Benzodiazepine Level (NEGATIVE) Urine Cocaine (NEGATIVE) Urine Marijuana (THC) (NEGATIVE) Ethyl Alcohol (0-10) mg/dL Monoscreen NEGATIVE (NEGATIVE) Influenza Type A Ag NEGATIVE (NEGATIVE) Influenza Type B Ag NEGATIVE (NEGATIVE) RSV (PCR) NEGATIVE (NEGATIVE) SARS-CoV-2 (PCR) NEGATIVE (NEGATIVE) 07/27/25 07/27/25 07/27/25 Range/Units 09:00 09:00 08:57 WBC 11.7 H (3.98-10.04) x10^3/uL RBC 4.39 (3.93-5.22) x10^6/uL Hgb 14.0 (11.2-15.7) g/dL Hct 41.6 (34.1-44.9) % MCV 94.8 (79.4-94.8) fL MCH 31.9 (25.6-32.2) pg MCHC 33.7 (32.2-35.5) g/dL RDW 12.2 (11.7-14.4) % Plt Count 382 H (182-369) x10^3/uL MPV 10.6 (9.4-12.3) fL Gran % 71.8 H (34.0-71.1) % Immature Gran % (Auto) 0.3 (0.001-0.429) % Nucleat RBC Rel Count 0.0 (0.00-0.2) % Eos # (Auto) 0.05 (0.04-0.36) x10^3/uL Immature Gran # (Auto) 0.03 (0.001-0.031) x10^3u/L Absolute Lymphs (auto) 2.76 (1.18-3.74) x10^3/uL Absolute Monos (auto) 0.41 (0.24-0.86) x10^3/uL Absolute Nucleated RBC 0.00 (0.00-0.012) x10^3u/L Lymphocytes % 23.7 (19.3-51.7) % Monocytes % 3.5 L (4.7-12.5) % Eosinophils % 0.4 L (0.7-5.8) % Basophils % 0.3 (0.1-1.2) % Absolute Granulocytes 8.39 H (1.56-6.13) x10^3/uL Basophils # 0.03 (0.01-0.08) x10^3/uL Sodium 137 (135-145) mmol/L Potassium 3.1 L (3.5-5.1) mmol/L Chloride 104 (98-107) mmol/L Carbon Dioxide 15 L* (22-30) mmol/L Anion Gap 20.4 H (5-15) MEQ/L BUN 10 (7-17) mg/dL Creatinine 0.86 (0.52-1.04) mg/dL Estimated GFR 87.5 ML/MIN Glucose 214 H (74-106) mg/dL Lactic Acid 5.8 H (0.4-2.0) Calcium 9.9 (8.4-10.2) mg/dL Magnesium 1.6 (1.6-2.3) mg/dL Total Bilirubin 0.70 (0.2-1.3) mg/dL AST 32 (14-36) U/L ALT 36 H (0-35) U/L Alkaline Phosphatase 111 (38-126) U/L Troponin I (0.000-0.033) ng/mL NT-Pro-B Natriuret Pep 25.4 (<300) pg/mL Serum Total Protein 7.9 (6.3-8.2) g/dL Albumin 4.6 (3.5-5.0) g/dL Urine Color (Yellow) Urine Appearance (Clear) Urine pH (4.6-8.0) Ur Specific [place] (1.005-1.030) Urine Protein (Negative) Urine Glucose (UA) (Negative) mg/dL Urine Ketones (Negative) Urine Blood (Negative) Urine Nitrite (Negative) Urine Bilirubin (Negative) Urine Urobilinogen (0.2) mg/dL Ur Leukocyte Esterase (Negative) U Hyaline Cast (Auto) (0-2) /LPF Urine Microscopic RBC (0-5) /HPF Urine Microscopic WBC (0-5) /HPF Ur Epithelial Cells (None Seen) /HPF Urine Bacteria (None Seen) /HPF Urine Culture Reflexed (NO) Urine Opiates Level (NEGATIVE) Ur Methadone (NEGATIVE) Urine Barbiturates (NEGATIVE) Ur Phencyclidine (PCP) (NEGATIVE) Urine Amphetamine (NEGATIVE) U Benzodiazepine Level (NEGATIVE) Urine Cocaine (NEGATIVE) Urine Marijuana (THC) (NEGATIVE) Ethyl Alcohol < 10 (0-10) mg/dL Monoscreen (NEGATIVE) Influenza Type A Ag (NEGATIVE) Influenza Type B Ag (NEGATIVE) RSV (PCR) (NEGATIVE) SARS-CoV-2 (PCR) (NEGATIVE) 07/27/25 07/27/25 Range/Units 08:47 08:47 WBC (3.98-10.04) x10^3/uL RBC (3.93-5.22) x10^6/uL Hgb (11.2-15.7) g/dL Hct (34.1-44.9) % MCV (79.4-94.8) fL MCH (25.6-32.2) pg MCHC (32.2-35.5) g/dL RDW (11.7-14.4) % Plt Count (182-369) x10^3/uL MPV (9.4-12.3) fL Gran % (34.0-71.1) % Immature Gran % (Auto) (0.001-0.429) % Nucleat RBC Rel Count (0.00-0.2) % Eos # (Auto) (0.04-0.36) x10^3/uL Immature Gran # (Auto) (0.001-0.031) x10^3u/L Absolute Lymphs (auto) (1.18-3.74) x10^3/uL Absolute Monos (auto) (0.24-0.86) x10^3/uL Absolute Nucleated RBC (0.00-0.012) x10^3u/L Lymphocytes % (19.3-51.7) % Monocytes % (4.7-12.5) % Eosinophils % (0.7-5.8) % Basophils % (0.1-1.2) % Absolute Granulocytes (1.56-6.13) x10^3/uL Basophils # (0.01-0.08) x10^3/uL Sodium (135-145) mmol/L Potassium (3.5-5.1) mmol/L Chloride (98-107) mmol/L Carbon Dioxide (22-30) mmol/L Anion Gap (5-15) MEQ/L BUN (7-17) mg/dL Creatinine (0.52-1.04) mg/dL Estimated GFR ML/MIN Glucose (74-106) mg/dL Lactic Acid (0.4-2.0) Calcium (8.4-10.2) mg/dL Magnesium (1.6-2.3) mg/dL Total Bilirubin (0.2-1.3) mg/dL AST (14-36) U/L ALT (0-35) U/L Alkaline Phosphatase (38-126) U/L Troponin I (0.000-0.033) ng/mL NT-Pro-B Natriuret Pep (<300) pg/mL Serum Total Protein (6.3-8.2) g/dL Albumin (3.5-5.0) g/dL Urine Color Yellow (Yellow) Urine Appearance Clear (Clear) Urine pH 7.5 (4.6-8.0) Ur Specific [place] <=1.005 (1.005-1.030) Urine Protein Negative (Negative) Urine Glucose (UA) Negative (Negative) mg/dL Urine Ketones Negative (Negative) Urine Blood Negative (Negative) Urine Nitrite Negative (Negative) Urine Bilirubin Negative (Negative) Urine Urobilinogen 0.2 (0.2) mg/dL Ur Leukocyte Esterase Negative (Negative) U Hyaline Cast (Auto) NONE SEEN (0-2) /LPF Urine Microscopic RBC 0-2 (0-5) /HPF Urine Microscopic WBC 0-2 (0-5) /HPF Ur Epithelial Cells Few (None Seen) /HPF Urine Bacteria None Seen (None Seen) /HPF Urine Culture Reflexed NO (NO) Urine Opiates Level NEGATIVE (NEGATIVE) Ur Methadone NEGATIVE (NEGATIVE) Urine Barbiturates NEGATIVE (NEGATIVE) Ur Phencyclidine (PCP) NEGATIVE (NEGATIVE) Urine Amphetamine NEGATIVE (NEGATIVE) U Benzodiazepine Level NEGATIVE (NEGATIVE) Urine Cocaine NEGATIVE (NEGATIVE) Urine Marijuana (THC) POSITIVE A (NEGATIVE) Ethyl Alcohol (0-10) mg/dL Monoscreen (NEGATIVE) Influenza Type A Ag (NEGATIVE) Influenza Type B Ag (NEGATIVE) RSV (PCR) (NEGATIVE) SARS-CoV-2 (PCR) (NEGATIVE) - Progress Progress: improved, re-examined Progress Note: 07/27/25 08:58 My medical decision making and the assignment of moderate complexity of this patient's medical issue today is based on review of the patient's past medical history, review the patient's medication list, reviewed patient drug allergy list, history present illness and physical findings on examination. The workup in this patient includes placement of intravenous line, infusion of normal saline solution, CBC, CMP, magnesium level, urinalysis, urine drug alcohol level, viral swabs, monotest, chest x-ray, troponin level, BNP Differential diagnosis includes but is not limited to panic attack, electrolyte abnormalities, hyperventilation, arrhythmia, myocardial infarction, viral illness, pulmonary infiltrate, dehydration, urinary tract infection 07/27/25 11:13 Patient states she is feeling much improved after infusion of 2 L of crystalloid. We are awaiting the urinalysis. Patient does have mild hypokalemia. We provided the patient with 20 mill equivalents of oral potassium and 400 mg of magnesium oxide orally. Patient's lactic acid level 5.8. 07/27/25 11:[address] scan of the patient's head was interpreted by the radiologist. The the radiologist interpretation says chronic normal CT scan of the head without contrast exam. 07/27/25 12:07 The urinalysis does not show anything acute. The urine drug screen test positive for marijuana but no other illicit drugs. Patient states she is doing well and is tolerating liquids. She will be discharged to home. Counseled pt/family regarding: lab results, diagnosis Medical Desision Making - Independent Historian Additional History obtained from: Family - Diagnostic Testing Diagnostic test were ordered, analyzed, and reviewed by me: Yes Radiological Interpretation: Reviewed by me, Teleradiologist Report - Risk of complications Low Risk: Low risk of morbidity from additional dx testing or treatment - Departure Departure Disposition: Home Clinical Impression: Dehydration, Lactic acidemia, Hypokalemia Condition: Stable Critical Care Time: No Referrals: AMINATA SHAH MD [Primary Care Provider, [facility]] - Follow up/PCP as directed Additional Instructions: Clear liquid diet. Advance your diet slowly. Avoid fatty greasy spicy foods. Take your medications as prescribed. Add bananas and green leafy vegetables to help improve your low potassium level. Call your primary care provider today, 07/27/2025, to make arrangements for follow-up appointment to be seen in the next 3 to 5 days.
[2025-07-27] MEDS: BABY ASPIRIN 81 MG CHEW PO ONE (08:57)
[2025-07-27 09:19] LABS: BASOPHIL % 0.3 % (0.1-1.2); Basophil (Absolute #) 0.03 x10^3/uL (0.01-0.08); Eosinophil (Absolute #) 0.05 x10^3/uL (0.04-0.36); Hematocrit 41.6 % (34.1-44.9); Hemoglobin 14.0 g/dL (11.2-15.7); IMMATURE GRAN # 0.03 x10^3u/L (0.001-0.031); IMMATURE GRAN % 0.3 % (0.001-0.429); Lymphocyte (Absolute #) 2.76 x10^3/uL (1.18-3.74); Mean Corpuscular Hemoglobin 31.9 pg (25.6-32.2); Mean Corpuscular Hgb Concent. 33.7 g/dL (32.2-35.5); Monocyte (Absolute #) 0.41 x10^3/uL (0.24-0.86); NUCLEATED RBC # 0.00 x10^3u/L (0.00-0.012); NUCLEATED RBC % 0.0 % (0.00-0.2); Platelet Count 382 x10^3/uL (182-369); Red Blood Count 4.39 x10^6/uL (3.93-5.22); White Blood Count 11.7 x10^3/uL (3.98-10.04)
[2025-07-27 09:41] LABS: Calcium 9.9 mg/dL (8.4-10.2); Creatinine 1 0.86 mg/dL (0.52-1.04); EST GLOMERULAR FILTRATION RATE 87.5 ML/MIN; ETHYL ALCOHOL < 10 mg/dL (0-10); Glucose 214 mg/dL (74-106); NT PRO BNPII 25.4 pg/mL (<300); Potassium 3.1 mmol/L (3.5-5.1); SGOT/AST 32 U/L (14-36); SGPT/ALT 36 U/L (0-35); Total Protein 7.9 g/dL (6.3-8.2)
[2025-07-27 09:43] LABS: Carbon Dioxide 15 mmol/L (22-30)
[2025-07-27] MEDS ORDERED: Lactated Ringers 1,000 ML IV ONE (09:55)
[2025-07-27] MEDS: Lactated Ringers 1,000 ML IV ONE (09:56)
[2025-07-27 10:10] LABS: INFLUENZA A NEGATIVE (NEGATIVE); INFLUENZA B NEGATIVE (NEGATIVE); RESPIRATORY SYNCTIAL VIRUS NEGATIVE (NEGATIVE); SARS-CoV-2 Xpert Express NEGATIVE (NEGATIVE)
--- NOTE | 2025-07-27 10:29 | XRAY ---
Indication: Headache. Syncope. Multiple contiguous axial images obtained through the head without contrast. Comparison: CT ER exams dated July 17, 2020, January 19, 2021, and November 29, 2021. Again normal appearing brain parenchyma, ventricles, and bony calvarium for patient's age. Visualized paranasal sinuses and mastoid air cells are clear. Impression: Continued chronic normal CT head without contrast exam.
[2025-07-27] MEDS: Klor Con PO ONE (11:22)
[2025-07-27] MEDS ORDERED: MAG-OX 400 ONE (11:22)
[2025-07-27] MEDS ORDERED: Klor Con ONE (11:22)
[2025-07-27] MEDS: MAG-OX 400 PO ONE (11:23)
[2025-07-27 11:36] LABS: Glucose, Urine Negative (Negative); Protein,Urine Dip Negative (Negative); RBC 0-2 /HPF (0-5); WBC 0-2 /HPF (0-5)
[2025-07-27 12:01] LABS: Amphetamine,Urine NEGATIVE (NEGATIVE); Barbiturate,Urine NEGATIVE (NEGATIVE); Benzodiazepine,Urine NEGATIVE (NEGATIVE); Cocaine,Urine NEGATIVE (NEGATIVE); Methadone,Urine NEGATIVE (NEGATIVE); Opiate,Urine NEGATIVE (NEGATIVE); PCP,Urine NEGATIVE (NEGATIVE); THC,Urine POSITIVE (NEGATIVE)
[2025-07-27 12:11] VITALS: BP 121/88; PULSE 52; RESP 21
== END 2025-07-27 12:38 | disposition home or self-care (01) ==
LOC: ED 08:24
DX: E86.0 Dehydration (principal); E87.20 Acidosis, unspecified; E87.6 Hypokalemia; R55 Syncope and collapse; R07.9 Chest pain, unspecified; R51.9 Headache, unspecified; Z79.899 Other long term (current) drug therapy